=== PATIENT | male | born 1970 | race Caucasian/White ===

== ENCOUNTER 2017-07-27 10:00 | Outpatient (RCR) | payer OTHER, MEDICAID, SELFPAY | END 2017-08-02 08:52 | LOC: CAR 10:00 | PROVIDERS: PCP Family Medicine; Visit Provider Family Medicine | DX: I21.9 Acute myocardial infarction, unspecified (principal); Z86.74 Personal history of sudden cardiac arrest | CPT/HCPCS: 93798 ==

== ENCOUNTER → 2017-11-09 09:57 | Outpatient (CLI) | payer OTHER, MEDICAID, SELFPAY ==
[2017-11-09 11:28] LABS: Alanine Aminotransferase 25 IU/L (21-72); Albumin 4.4 g/dL (3.5-5.0); Albumin Globulin Ratio 1.5 (1.0-2.8); Alkaline Phosphatase 49 U/L (38-126); Aspartate Aminotransferase 25 IU/L (17-59); Bilirubin Total 0.5 mg/dL (0.2-1.3); Blood Urea Nitrogen 18 mg/dL (9-20); Calcium 9.1 mg/dL (8.4-10.2); Carbon Dioxide 30 mmol/L (22-32); Chloride 104 mmol/L (98-107); Cholesterol 133 mg/dL (140-199); Estimated Glomerular Filt Rate > 60.0 mL/min (>60); Glucose 92 mg/dL (70-100); HDL Cholesterol 51 mg/dL (40-60); HEMOLYSIS < 15 (0-50); LDL Cholesterol Calculated 59 mg/dL (<100); Potassium 4.3 mmol/L (3.4-5.1); Sodium 143 mmol/L (137-145); Total Protein 7.4 g/dL (6.3-8.2); Triglycerides 113 mg/dL (35-150)
== END ==
PROVIDERS: PCP Family Medicine; Visit Provider Family Medicine
DX: I10 Essential (primary) hypertension (principal)
CPT/HCPCS: 36415; 80053; 80061

== ENCOUNTER → 2018-03-15 11:21 | Outpatient (CLI) | payer OTHER, MEDICAID, SELFPAY ==
[2018-03-15 12:38] LABS: Alanine Aminotransferase 45 IU/L (21-72); Albumin 4.5 g/dL (3.5-5.0); Albumin Globulin Ratio 1.7 (1.0-2.8); Alkaline Phosphatase 48 U/L (38-126); Aspartate Aminotransferase 27 IU/L (17-59); BUN Creatinine Ratio 15.6 (6-22); Bilirubin Total 0.3 mg/dL (0.2-1.3); Blood Urea Nitrogen 14 mg/dL (9-20); Calcium 9.8 mg/dL (8.4-10.2); Carbon Dioxide 29 mmol/L (22-32); Chloride 105 mmol/L (98-107); Cholesterol 144 mg/dL (140-199); Estimated Glomerular Filt Rate > 60.0 mL/min (>60); Globulin 2.7 g/dL (1.7-4.1); Glucose 97 mg/dL (70-100); HDL Cholesterol 66 mg/dL (40-60); HEMOLYSIS < 15 (0-50); LDL Cholesterol Calculated 61 mg/dL (<100); Potassium 5.2 mmol/L (3.4-5.1); Sodium 147 mmol/L (137-145); Total Protein 7.2 g/dL (6.3-8.2); Triglycerides 87 mg/dL (35-150)
== END ==
PROVIDERS: PCP Family Medicine; Visit Provider Family Medicine
DX: I25.10 Atherosclerotic heart disease of native coronary artery without angina pectoris (principal); Z51.81 Encounter for therapeutic drug level monitoring
CPT/HCPCS: 36415; 80053; 80061

== ENCOUNTER 2018-03-18 10:08 | Inpatient (IN) | payer OTHER, MEDICAID, SELFPAY ==
[2018-03-18] VITALS (16 sets, daily range): BP systolic 84–119; BP diastolic 39–57; PULSE 39–95; RESP 14–19; TEMP 36.4–37.1; O2SAT 92–100; BMI 23.3; BMI 25.0
--- NOTE | 2018-03-18 10:16 | ED_ITS ---
HPI - General Adult General Chief complaint: Abdominal Pain Stated complaint: BLOODY BOWELS Time Seen by Provider: 03/18/18 10:15 Source: patient Mode of arrival: ambulatory Limitations: no limitations History of Present Illness HPI narrative: 47-year-old male. Currently taking aspirin and Plavix secondary to a cardiac stent placed earlier this year. Also finished a course of antibiotics a couple days ago after having a dental infection. No recent travel. States yesterday he had some diarrhea. Today he had a couple bowel movements that were bright red blood. Has had some abdominal cramping. No fevers. No urinary symptoms. Never had anything like this before. Related Data Home Medications Medication Instructions Recorded Confirmed aspirin 81 mg PO QDAY #0 05/22/17 03/18/18 Previous Rx's Medication Instructions Recorded nitroglycerin 0.3 mg sublingual 0.3 mg SL Q5M PRN #30 tab MDD 3 08/18/17 tablet tabs atorvastatin 40 mg tablet 40 mg PO HS #90 tab 10/18/17 clopidogrel 75 mg tablet 75 mg PO QDAY #90 tab 10/18/17 metoprolol succinate ER 100 mg 100 mg PO QDAY #90 tab 10/18/17 tablet,extended release 24 hr lisinopril 5 mg tablet 2.5 mg PO QDAY #45 tab 01/30/18 Allergies Allergy/AdvReac Type Severity Reaction Status Date / Time No Known Drug Allergies Allergy Verified 03/18/18 10:19 Review of Systems Constitutional Denies fever(s) Cardiovascular Denies chest pain and Denies dyspnea Respiratory Denies cough and Denies dyspnea Gastrointestinal Gastrointestinal: Denies abdominal pain, Denies melena, Denies change in bowel habits, Reports cramping, Denies nausea and Denies vomiting Comments: Bright red blood per rectum Genitourinary Denies dysuria Musculoskeletal Denies myalgias and Denies arthralgias Integumentary/Breasts Denies rash Neurologic Denies behavioral changes Psychiatric Denies behavioral changes Hematologic/Lymphatic Comments: On aspirin and Plavix [facility] Social History Smoking Status: Former smoker Tobacco: How many years used: 20 alcohol intake: current (A couple glasses of wine a day) substance use type: marijuana (Every now and then a marijuana edible) Exam Initial Vital Signs Initial Vital Signs: Vital Signs Temperature 97.5 F L 03/18/18 10:08 Pulse Rate 95 H 03/18/18 10:08 Respiratory Rate 18 03/18/18 10:08 Blood Pressure 91/39 L 03/18/18 10:08 Const General: cooperative, comfortable, well developed, well groomed and No acute distress Orientation: alert, awake and oriented x3 HENMT Head: normal to inspection and normocephalic Resp Effort & Inspection: normal respiratory effort Cardio Rate: regular rate GI Inspection: non-distended Palpation: soft, No firm and No tender Rectal Exam: normal sphincter tone, No fissure, heme positive stool, No hemorrhoids and tenderness Skin Lesions: no lesions Rashes: no rashes Neuro General: alert, awake and oriented x3 Extrem General: normal to inspection and capillary refill normal Psych Appearance: grossly normal and well kempt Course Orders Ordered: ED Orders 03/18/18 10:26 Complete Blood Count AUTO DIFF Stat Comprehensive Metabolic Panel Stat Lipase Stat Packed Cells Stat Partial Thromboplastin Time Stat Prothrombin Time INR Stat Type and Screen Stat 03/18/18 10:33 CT abdomen pelvis w con Stat 03/18/18 10:50 GI Panel Stat 03/18/18 11:45 Hemoglobin and Hematocrit Stat 03/18/18 13:21 Clostridium Difficile Tox PCR Stat 03/18/18 13:30 Hemoglobin and Hematocrit Stat Pantoprazole Sodium 80 mg/ (Sodium Chloride) 100 mls @ 10 mls/hr IV CONT KYA Last Admin: 03/18/18 11:07 Dose: 8 mg/hr, 10 mls/hr Sodium Chloride (Normal Saline 0.9%) 1,000 mls @ 125 mls/hr IV CONT KYA Last Admin: 03/18/18 12:05 Dose: 125 mls/hr Piperacillin/Tazobactam/Dextrose (Zosyn) 3.375 gm in 50 mls @ 100 mls/hr IV NOW ONE Stop: 03/18/18 13:45 Metronidazole (Flagyl) 500 mg in 100 mls @ 100 mls/hr IV NOW ONE Stop: 03/18/18 14:15 Discontinued Medications Sodium Chloride (Normal Saline 0.9%) 1,000 mls @ 1,000 mls/hr IV BOLUS ONE Stop: 03/18/18 11:32 Last Infusion: 03/18/18 11:58 Dose: 0 mls/hr Admin: 03/18/18 11:05 Dose: 1,000 mls/hr Ondansetron HCl (Zofran) 4 mg IV NOW ONE Stop: 03/18/18 10:46 Last Admin: 03/18/18 11:04 Dose: 4 mg Pantoprazole Sodium (Protonix) 80 mg IV NOW ONE Stop: 03/18/18 10:46 Last Admin: 03/18/18 11:05 Dose: 80 mg Vital Signs - 8 hr 03/18/18 10:08 03/18/18 10:35 03/18/18 10:40 Temperature 97.5 F L Pulse Rate 95 H 39 L 47 L Respiratory Rate 18 19 Blood Pressure 91/39 L Blood Pressure [Left Arm] 88/45 L 84/41 L Pulse Oximetry 92 100 03/18/18 10:50 03/18/18 11:03 03/18/18 11:10 Temperature Pulse Rate 51 L 56 L 57 L Respiratory Rate 18 18 18 Blood Pressure Blood Pressure [Left Arm] 84/43 L 93/48 L 100/54 L Pulse Oximetry 94 100 03/18/18 11:53 03/18/18 12:51 Temperature Pulse Rate 64 75 Respiratory Rate 18 16 Blood Pressure Blood Pressure [Left Arm] 104/57 L 94/54 L Pulse Oximetry 100 95 Medical Decision Making Lab Data Lab results reviewed: Yes I reviewed the patient's lab results. Result diagrams: 03/18/18 11:45 03/18/18 10:26 Lab Results 03/18/18 03/18/18 03/18/18 Range/Units 10:26 10:26 10:26 WBC 12.1 H (4.5-11.0) X10^3/uL RBC 4.56 (4.5-5.9) X10^6/uL Hgb 14.2 (13.5-17.5) g/dL Hct 41.4 (41-53) % MCV 90.6 (80-100) fL MCH 31.1 (26-34) PG MCHC 34.3 (30-36) % RDW 14.2 (11.6-14.8) % Plt Count 324 (150-400) X10^3/uL Neut % (Auto) 78.3 H (50-75) % Lymph % (Auto) 11.6 L (25-40) % [place] % (Auto) 9.0 (3-14) % Eos % (Auto) 0.5 L (2-4) % Baso % (Auto) 0.6 (0-2) % Neut # (Auto) 9500 H (1057-6509) /uL PT 12.0 (10.1-12.7) SECONDS INR 1.0 (0.9-1.3) APTT 17 L (26.4-36.2) SECONDS Sodium 141 (137-145) mmol/L Potassium 3.8 D (3.4-5.1) mmol/L Chloride 108 H (98-107) mmol/L Carbon Dioxide 19 L (22-32) mmol/L BUN 13 (9-20) mg/dL Creatinine 0.90 (0.66-1.25) mg/dL Estimated GFR > 60.0 (>60) mL/min BUN/Creatinine Ratio 14.4 (6-22) Glucose 164 H (70-100) mg/dL Calcium 9.3 (8.4-10.2) mg/dL Total Bilirubin 0.6 (0.2-1.3) mg/dL AST 30 (17-59) IU/L ALT 47 (21-72) IU/L Alkaline Phosphatase 58 (38-126) U/L Total Protein 7.5 (6.3-8.2) g/dL Albumin 4.5 (3.5-5.0) g/dL Globulin 3.0 (1.7-4.1) g/dL Albumin/Globulin Ratio 1.5 (1.0-2.8) Lipase (23-300) U/L Blood Type Antibody Screen Crossmatch 03/18/18 03/18/18 03/18/18 Range/Units 10:26 10:26 11:45 WBC (4.5-11.0) X10^3/uL RBC (4.5-5.9) X10^6/uL Hgb 11.3 L (13.5-17.5) g/dL Hct 32.9 L (41-53) % MCV (80-100) fL MCH (26-34) PG MCHC (30-36) % RDW (11.6-14.8) % Plt Count (150-400) X10^3/uL Neut % (Auto) (50-75) % Lymph % (Auto) (25-40) % [place] % (Auto) (3-14) % Eos % (Auto) (2-4) % Baso % (Auto) (0-2) % Neut # (Auto) (3002-8808) /uL PT (10.1-12.7) SECONDS INR (0.9-1.3) APTT (26.4-36.2) SECONDS Sodium (137-145) mmol/L Potassium (3.4-5.1) mmol/L Chloride (98-107) mmol/L Carbon Dioxide (22-32) mmol/L BUN (9-20) mg/dL Creatinine (0.66-1.25) mg/dL Estimated GFR (>60) mL/min BUN/Creatinine Ratio (6-22) Glucose (70-100) mg/dL Calcium (8.4-10.2) mg/dL Total Bilirubin (0.2-1.3) mg/dL AST (17-59) IU/L ALT (21-72) IU/L Alkaline Phosphatase (38-126) U/L Total Protein (6.3-8.2) g/dL Albumin (3.5-5.0) g/dL Globulin (1.7-4.1) g/dL Albumin/Globulin Ratio (1.0-2.8) Lipase 160 (23-300) U/L Blood Type A Negative Antibody Screen Negative Crossmatch See Detail Imaging Data CT scan - abdomen: Radiologist's impression: PROCEDURE: CT ABDOMEN PELVIS W CON INDICATIONS: Rectal bleeding TECHNIQUE: After the administration of intravenous contrast, 5 mm thick sections acquired from the diaphragm to the symphysis. 5 mm coronal and sagittal reformats were acquired. For radiation dose reduction, the following was used: automated exposure control, adjustment of mA and/or kV according to patient size. COMPARISON: [facility], CT, CT HEAD WITHOUT CONTRAST, 04/28/2017, 23 :58. FINDINGS: Image quality: Excellent. ABDOMEN: Lung bases: Lung bases are clear. Heart size is normal. Solid organs: Liver is normal in size and enhancement. Gallbladder is unremarkable. Biliary system is non dilated. Pancreas enhances normally. Spleen is normal in size and enhancement. No adrenal nodules. Kidneys demonstrate normal size and enhancement, without hydronephrosis. Peritoneum and bowel: Normal appendix best seen on axial image 65 of series 2. There is diffuse colonic wall thickening of the cecum as well as diffuse mucosal hyperemia of the cecum, transverse colon, descending colon, sigmoid colon, and rectum. There is diffuse colonic diverticulosis without convincing evidence of acute diverticulitis. No free fluid or air. Nodes and vessels: No retroperitoneal or mesenteric adenopathy by size criteria. Aorta and inferior vena cava are normal in size. Miscellaneous: No ventral hernias. PELVIS: Genitourinary: The bladder is incompletely decompressed but demonstrates mild diffuse bladder wall thickening. Miscellaneous: Small bilateral indirect inguinal fat-containing hernias. Bones: No suspicious bony lesions. No vertebral body compression fractures. Mild multilevel degenerative changes of the lumbar spine. IMPRESSION: Diffuse colonic wall thickening of the cecum and diffuse mucosal hyperemia of the cecum, transverse colon, descending colon, sigmoid colon, and rectum concerning for a diffuse colitis/proctitis. Recommend followup colonoscopy after the current clinical episode resolves to exclude an underlying mass lesion. Mild diffuse bladder wall thickening, which may be secondary to incomplete decompression. Correlation with urinalysis suggested to exclude an underlying infection. Dictated by: Yves Ruiz M.D. on 03/18/2018 at 12:05 MDM Narrative Medical decision making narrative: Patient with a benign abdominal exam. Has grossly positive blood from the rectum. No hemorrhoids or fissures seen or felt. Prior to his CT scan patient had an episode where he vomited and became bradycardic and hypotensive to a systolic blood pressure greater than 80. This did improve with positioning and a fluid bolus. He has remained with a systolic blood pressure in the high 90s to low 100s. He has never become bradycardic or tachycardic since then. Initial H&H was 14/41. Repeat 1 hr later was 11/32. This was after 1 L fluids. A repeat H&H was ordered for 2 hr later. This is still pending at the time of admission. C diff PCR and a GI panel also pending at the time of admission. CT scan concerning for a nation colitis. I discussed the case with the hospitalist to admit the patient for further evaluation and treatment. Also discussed the case with Dr. Amezquita which General surgery. Recommend starting Zosyn and Flagyl which was ordered here in the emergency department. I discussed the admission with the patient and family who are at bedside. They expressed understanding and agreement with plan. Critical Care Time Critical Care Time: Yes Total Critical Care Time: 35 Attestation: The high probability of a clinically significant, sudden or life threatening deterioration of the cardiovascular system(s) required my full and direct attention, intervention and personal management. The aggregate critical care time was 35 minutes. This time is in addition to time spent performing reported procedures but includes the following: [] Data Review and interpretation [] Patient assessment and monitoring of vital signs [] Documentation [] Medication orders and management Discharge Plan Departure Patient Disposition: Admitted As Inpatient Clinical Impression: Colitis, Hypotension, Bright red rectal bleeding Admit Date/Time: 03/18/18 13:16 Admit Provider: Elisabeth Michelle
--- NOTE | 2018-03-18 10:33 | DI.CT.S_ITS ---
PROCEDURE: CT ABDOMEN PELVIS W CON INDICATIONS: Rectal bleeding TECHNIQUE: After the administration of intravenous contrast, 5 mm thick sections acquired from the diaphragm to the symphysis. 5 mm coronal and sagittal reformats were acquired. For radiation dose reduction, the following was used: automated exposure control, adjustment of mA and/or kV according to patient size. COMPARISON: [facility], CT, CT HEAD WITHOUT CONTRAST, 04/28/2017, 23:58. FINDINGS: Image quality: Excellent. ABDOMEN: Lung bases: Lung bases are clear. Heart size is normal. Solid organs: Liver is normal in size and enhancement. Gallbladder is unremarkable. Biliary system is non dilated. Pancreas enhances normally. Spleen is normal in size and enhancement. No adrenal nodules. Kidneys demonstrate normal size and enhancement, without hydronephrosis. Peritoneum and bowel: Normal appendix best seen on axial image 65 of series 2. There is diffuse colonic wall thickening of the cecum as well as diffuse mucosal hyperemia of the cecum, transverse colon, descending colon, sigmoid colon, and rectum. There is diffuse colonic diverticulosis without convincing evidence of acute diverticulitis. No free fluid or air. Nodes and vessels: No retroperitoneal or mesenteric adenopathy by size criteria. Aorta and inferior vena cava are normal in size. Miscellaneous: No ventral hernias. PELVIS: Genitourinary: The bladder is incompletely decompressed but demonstrates mild diffuse bladder wall thickening. Miscellaneous: Small bilateral indirect inguinal fat-containing hernias. Bones: No suspicious bony lesions. No vertebral body compression fractures. Mild multilevel degenerative changes of the lumbar spine. IMPRESSION: Diffuse colonic wall thickening of the cecum and diffuse mucosal hyperemia of the cecum, transverse colon, descending colon, sigmoid colon, and rectum concerning for a diffuse colitis/proctitis. Recommend followup colonoscopy after the current clinical episode resolves to exclude an underlying mass lesion. Mild diffuse bladder wall thickening, which may be secondary to incomplete decompression. Correlation with urinalysis suggested to exclude an underlying infection. Dictated by: Yves Ruiz M.D. on 03/18/2018 at 12:05 Approved by: Yves Ruiz M.D. on 03/18/2018 at 12:14
[2018-03-18 10:42] LABS: Add Manual Diff / Slide Review NO; Basophils Percent Auto 0.6 % (0-2); Eosinophils Percent Auto 0.5 % (2-4); Hematocrit 41.4 % (41-53); Hemoglobin 14.2 g/dL (13.5-17.5); Lymphocytes Percent Auto 11.6 % (25-40); Mean Corpuscular HGB Conc 34.3 % (30-36); Mean Corpuscular Hemoglobin 31.1 PG (26-34); Mean Corpuscular Volume 90.6 fL (80-100); Neutrophils Absolute Auto 9500 /uL (1500-7000); Neutrophils Percent Auto 78.3 % (50-75); Platelet Count 324 X10^3/uL (150-400); Red Blood Cell Count 4.56 X10^6/uL (4.5-5.9); Red Cell Distribution Width 14.2 % (11.6-14.8); White Blood Cell Count 12.1 X10^3/uL (4.5-11.0)
[2018-03-18 10:46] LABS: PTT Partial Thromboplastin Tim 17 SECONDS (26.4-36.2)
--- NOTE | 2018-03-18 10:55 | PC.NURSE ---
Fluids started and pt placed in trandelenburg position. Patient awake and talking but feeling dizzy, see orders.
[2018-03-18 10:58] LABS: Chloride 108 mmol/L (98-107); Lipase 160 U/L (23-300); Potassium 3.8 mmol/L (3.4-5.1); Sodium 141 mmol/L (137-145)
[2018-03-18 10:59] LABS: Alanine Aminotransferase 47 IU/L (21-72); Albumin 4.5 g/dL (3.5-5.0); Albumin Globulin Ratio 1.5 (1.0-2.8); Alkaline Phosphatase 58 U/L (38-126); Aspartate Aminotransferase 30 IU/L (17-59); BUN Creatinine Ratio 14.4 (6-22); Bilirubin Total 0.6 mg/dL (0.2-1.3); Blood Urea Nitrogen 13 mg/dL (9-20); Calcium 9.3 mg/dL (8.4-10.2); Carbon Dioxide 19 mmol/L (22-32); Estimated Glomerular Filt Rate > 60.0 mL/min (>60); Glucose 164 mg/dL (70-100); HEMOLYSIS < 15 (0-50); Total Protein 7.5 g/dL (6.3-8.2)
[2018-03-18] MEDS: ONDANSETRON 4 MG/2 ML INJ IV (11:04)
[2018-03-18] MEDS: PANTOPRAZOLE 40 MG VIAL 80 MG IV (11:05)
[2018-03-18] MEDS: SODIUM CHLORIDE 0.9% 1,000 ML 1000 ML IV (11:05)
[2018-03-18] MEDS: PANTOPRAZOLE 80 MG in SODIUM CHLORIDE 0.9% 100 ML 10 ML IV (11:07)
[2018-03-18 11:52] LABS: Hematocrit 32.9 % (41-53); Hemoglobin 11.3 g/dL (13.5-17.5)
[2018-03-18] MEDS: SODIUM CHLORIDE 0.9% 1,000 ML 125 ML IV ×2 (12:05→20:44)
[2018-03-18 13:42] LABS: Hematocrit 34.3 % (41-53); Hemoglobin 11.8 g/dL (13.5-17.5)
[2018-03-18 13:43] LABS: Adenovirus F 40/41 Not Detected (Not Detect); Astrovirus Not Detected (Not Detect); Campylobacter Not Detected (Not Detect); Clostridium difficile toxin AB Not Detected (Not Detect); Cryptosporidium Not Detected (Not Detect); Cyclospora cayetanensis Not Detected (Not Detect); Entamoeba histolytica Not Detected (Not Detect); Enteroaggregative E.coli Not Detected (Not Detect); Enteropathogenic E.coli Detected (Not Detect); Enterotoxigenic E.coli It/st Not Detected (Not Detect); Giardia lamblia Not Detected (Not Detect); Norovirus GI/GII Not Detected (Not Detect); Plesiomonsa shigelloides Not Detected (Not Detect); Rotavirus A Not Detected (Not Detect); Salmonella Not Detected (Not Detect); Sapovirus Not Detected (Not Detect); Shiga-like toxin-prod E.coli Not Detected (Not Detect); Shigella/Enteroinvasive E.coli Not Detected (Not Detect); Vibrio Not Detected (Not Detect); Vibrio cholerae Not Detected (Not Detect); Yersinia enterocolitica Not Detected (Not Detect)
[2018-03-18] MEDS: PIPERACILLIN-TAZO 3.375 GM/50 ML FROZ.PIGGY IV (13:43)
--- NOTE | 2018-03-18 14:52 | PC.NURSE ---
Pt arrived to room 207 from ER. Scooted to bed from stretcher, after vasovagal episode in ER. No c/o nausea. No c/o pain. Resting comfortably through admission. PIV x2. Call light for needs. Urinal and Bedrest instructions provided.
--- NOTE | 2018-03-18 15:18 | P.HP_ITS ---
History of Present Illness Date Patient Seen: 03/18/18 Time Patient Seen: 15:06 Chief complaint: BLOODY BOWELS Narrative: - THIS IS A 47-YEAR-OLD MALE WITH PAST MEDICAL HISTORY SIGNIFICANT FOR RECENT [place]. PATIENT REPORTED STENT PLACEMENT X1 DONE AT ANOTHER FACILITY. - AFTER THE PROCEDURE HE WAS PLACED ON ASPIRIN AND PLAVIX WHICH SHE HAS BEEN TAKING. - HE STATED HE HAS BEEN IN HIS USUAL STATE OF HEALTH. WHEN THIS MORNING, AFTER FEW DAYS OF FEELING SOME ABDOMINAL DISCOMFORT, HISTORY HAVING SOME NAUSEA VOMITING AND DIARRHEA - HE REPORTED HE HAD FOUR BOUTS OF DIARRHEA WITH GROSS BLOODY PRODUCT NOTED ON THE STOOLS - HE DENIES ANY RECENT COLONOSCOPY. HE HAS NO FAMILY HISTORY OF COLON CANCER. - HIS HEMOGLOBIN ON ADMISSION WAS ABOVE 14. A REPEAT HEMOGLOBIN WAS 11 AT THIS TIME. HOWEVER PATIENT DID RECEIVE A LARGE AMOUNT OF IV FLUID IN THE ER - PATIENT REPORTED THAT HE DOES DRINK BEER DAILY. THREE TO 4 DAILY DRINKS REPORTED. - HE ALSO REPORTED THAT HE HAD ANOTHER BOWEL MOVEMENT HERE IN THE HOSPITAL WHICH WAS BLOODY IN NATURE WELL - IN THE ER HE ALSO HAD A PRESYNCOPAL EPISODE BUT SINCE THEN IS FEELING MUCH BETTER - HE DENIED ANY TRAVEL OUTSIDE THE COUNTRY FOR THE LAST 12 MONTHS. HE ALSO DENIES ANY EXOTIC FOOD INTAKES. HE HAS NOT BEEN CAMPING. THERE IS NO CHILDREN IN HIS HOUSE - NO REPORTED SICK CONTACTS; HAS NOT BEEN EATING ANY UNUSUAL PLACES - HE DOES NOT SMOKE TOBACCO - NO OTHER COMPLAINT REPORTED AFTER THOROUGH REVIEW OF SYSTEMS Patient History Medical History Cardiomyopathy (Acute Unknown) Coronary artery disease (Acute Unknown) Cardiac arrest (Resolved 04/2017) H/O ventricular tachycardia (Resolved 04/2017) Pneumonia (Resolved 04/2017) Surgical History S/P coronary artery stent placement (Resolved 04/2017) Status post knee surgery Family & Social History Family History: Reviewed 03/18/18 by Elisabeth Michelle DO Safety & Behavioral: Feels Safe in Current Yes Environment Been Physically Hurt or No Threatened By a Person Suicidal Ideation Description None Suicide Plan Description No Plan Tobacco & Substance use: Smoking Status Former smoker Smoking packs per day 1 alcohol intake current Substance Use Type marijuana Meds Home Medications Medication Instructions Recorded Confirmed Type aspirin 81 mg PO QDAY #0 05/22/17 03/18/18 History nitroglycerin 0.3 mg sublingual 0.3 mg SL Q5M PRN #30 tab MDD 3 08/18/17 Rx tablet tabs atorvastatin 40 mg tablet 40 mg PO HS #90 tab 10/18/17 03/18/18 Rx clopidogrel 75 mg tablet 75 mg PO QDAY #90 tab 10/18/17 03/18/18 Rx metoprolol succinate ER 100 mg 100 mg PO QDAY #90 tab 10/18/17 03/18/18 Rx tablet,extended release 24 hr lisinopril 5 mg tablet 2.5 mg PO QDAY #45 tab 01/30/18 03/18/18 Rx Allergies Allergy/AdvReac Type Severity Reaction Status Date / Time No Known Drug Allergies Allergy Verified 03/18/18 10:19 Review of Systems Review of Systems All systems reviewed & are unremarkable except as noted in HPI and below Exam Vital Signs (past 8 hours): - 03/18/18 10:08 03/18/18 10:35 03/18/18 10:40 Temperature 97.5 F L Pulse Rate 95 H 39 L 47 L Respiratory Rate 18 19 Blood Pressure 91/39 L Blood Pressure [Left Arm] 88/45 L 84/41 L Pulse Oximetry 92 100 03/18/18 10:50 03/18/18 11:03 03/18/18 11:10 Temperature Pulse Rate 51 L 56 L 57 L Respiratory Rate 18 18 18 Blood Pressure Blood Pressure [Left Arm] 84/43 L 93/48 L 100/54 L Pulse Oximetry 94 100 03/18/18 11:53 03/18/18 12:51 03/18/18 13:30 Temperature Pulse Rate 64 75 56 L Respiratory Rate 18 16 14 Blood Pressure Blood Pressure [Left Arm] 104/57 L 94/54 L 103/51 L Pulse Oximetry 100 95 99 03/18/18 13:49 03/18/18 14:30 03/18/18 14:35 Temperature 98.7 F Pulse Rate 54 L 61 58 L Respiratory Rate 18 16 14 Blood Pressure 119/57 L Blood Pressure [Left Arm] 103/51 L 109/57 L Pulse Oximetry 98 100 99 03/18/18 14:42 Temperature Pulse Rate Respiratory Rate Blood Pressure Blood Pressure [Left Arm] Pulse Oximetry 99 Oxygen Delivery Method Room Air Oxygen Flow Rate 0 Narrative Exam Narrative: NO ACUTE DISTRESS. PATIENT IS ALERT ORIENTED X3. VITAL SIGNS STABLE HEAD ATRAUMATIC NORMOCEPHALIC NECK : SUPPLE WITHOUT ADENOPATHY NO CAROTID BRUITS EYE: EOMI, PERRLA, NORMAL CONJUNCTIVA; NO JAUNDICE CHEST: REGULAR RATE. NO RUBS. PMI IS NON DISPLACED. NO MURMURS; NORMAL S1- S2 PULMONARY: DECREASED BS OVER THE BASES. MILD BIBASILAR CRACKLES NOTED; NO INCREASED DULLNESS TO PERCUSSION ABDOMEN: SOFT. MILDLY TENDER TO MODERATE PALPATION DIFFUSELY. NO GUARDING. NO REBOUND TENDERNESS. NONDISTENDED. BOWEL SOUNDS ARE PRESENT IN ALL 4 QUADRANTS. NO MASS. EXTREMITIES: NO EDEMA.. NO CYANOSIS CLUBBING NOTED. NEURO: CRANIAL NERVES 2-12 GROSSLY INTACT. NO FOCAL NEUROLOGICAL DEFICIT NOTED. MSK: NORMAL RANGE OF MOTION FOR AGE. NO JOINT EFFUSION. SKIN: NORMAL FOR ETHNICITY; NO ECCHYMOSIS. NO LESION. GOOD TURGOR.; NO RASHES : NORMAL EXTERNAL GENITALIA. PSYCH : APPROPRIATE MOOD AND AFFECT. ALERT AWAKE ORIENTED X3 Objective Labs Result Diagrams: 03/18/18 13:35 03/18/18 10:26 Labs: Laboratory Results - last 24 hr 03/18/18 03/18/18 03/18/18 10:26 10:26 10:26 WBC 12.1 H RBC 4.56 Hgb 14.2 Hct 41.4 MCV 90.6 MCH 31.1 MCHC 34.3 RDW 14.2 Plt Count 324 Neut % (Auto) 78.3 H Lymph % (Auto) 11.6 L [place] % (Auto) 9.0 Eos % (Auto) 0.5 L Baso % (Auto) 0.6 Neut # (Auto) 9500 H PT 12.0 INR 1.0 APTT 17 L Sodium 141 Potassium 3.8 D Chloride 108 H Carbon Dioxide 19 L BUN 13 Creatinine 0.90 Estimated GFR > 60.0 BUN/Creatinine Ratio 14.4 Glucose 164 H Calcium 9.3 Total Bilirubin 0.6 AST 30 ALT 47 Alkaline Phosphatase 58 Total Protein 7.5 Albumin 4.5 Globulin 3.0 Albumin/Globulin Ratio 1.5 Lipase Stl C. cayetanensis PCR Stool Rotavirus (PCR) Stool Adenovirus (PCR) Stool Astrovirus (PCR) Stool Cryptosporidium PCR Stl E.coli Shiga Tox PCR St Sh/Enteroin Ecoli PCR Stool E coli O157 PCR Stl Enterotoxigenic E PCR Stool EPEC (PCR) Stl E. histolytica PCR Stool Giardia Lamblia PCR Stool Sapovirus (PCR) Stl P. shigelloides PCR St Y.enterocolitica PCR Stool Vibrio (PCR) Stl Vibrio cholerae PCR Stl Enteroaggr Ecoli PCR Stl Norovirus GI/GII PCR Campylobacter (PCR) C. difficile Tox (PCR) Salmonella (PCR) Blood Type Antibody Screen Crossmatch 03/18/18 03/18/18 03/18/18 10:26 10:26 10:50 WBC RBC Hgb Hct MCV MCH MCHC RDW Plt Count Neut % (Auto) Lymph % (Auto) [place] % (Auto) Eos % (Auto) Baso % (Auto) Neut # (Auto) PT INR APTT Sodium Potassium Chloride Carbon Dioxide BUN Creatinine Estimated GFR BUN/Creatinine Ratio Glucose Calcium Total Bilirubin AST ALT Alkaline Phosphatase Total Protein Albumin Globulin Albumin/Globulin Ratio Lipase 160 Stl C. cayetanensis PCR Not detected Stool Rotavirus (PCR) Not detected Stool Adenovirus (PCR) Not detected Stool Astrovirus (PCR) Not detected Stool Cryptosporidium PCR Not detected Stl E.coli Shiga Tox PCR Not detected St Sh/Enteroin Ecoli PCR Not detected Stool E coli O157 PCR Not detected Stl Enterotoxigenic E PCR Not detected Stool EPEC (PCR) Detected H Stl E. histolytica PCR Not detected Stool Giardia Lamblia PCR Not detected Stool Sapovirus (PCR) Not detected Stl P. shigelloides PCR Not detected St Y.enterocolitica PCR Not detected Stool Vibrio (PCR) Not detected Stl Vibrio cholerae PCR Not detected Stl Enteroaggr Ecoli PCR Not detected Stl Norovirus GI/GII PCR Not detected Campylobacter (PCR) Not detected C. difficile Tox (PCR) Not detected Salmonella (PCR) Not detected Blood Type A Negative Antibody Screen Negative Crossmatch See Detail 03/18/18 03/18/18 11:45 13:35 WBC RBC Hgb 11.3 L 11.8 L Hct 32.9 L 34.3 L MCV MCH MCHC RDW Plt Count Neut % (Auto) Lymph % (Auto) [place] % (Auto) Eos % (Auto) Baso % (Auto) Neut # (Auto) PT INR APTT Sodium Potassium Chloride Carbon Dioxide BUN Creatinine Estimated GFR BUN/Creatinine Ratio Glucose Calcium Total Bilirubin AST ALT Alkaline Phosphatase Total Protein Albumin Globulin Albumin/Globulin Ratio Lipase Stl C. cayetanensis PCR Stool Rotavirus (PCR) Stool Adenovirus (PCR) Stool Astrovirus (PCR) Stool Cryptosporidium PCR Stl E.coli Shiga Tox PCR St Sh/Enteroin Ecoli PCR Stool E coli O157 PCR Stl Enterotoxigenic E PCR Stool EPEC (PCR) Stl E. histolytica PCR Stool Giardia Lamblia PCR Stool Sapovirus (PCR) Stl P. shigelloides PCR St Y.enterocolitica PCR Stool Vibrio (PCR) Stl Vibrio cholerae PCR Stl Enteroaggr Ecoli PCR Stl Norovirus GI/GII PCR Campylobacter (PCR) C. difficile Tox (PCR) Salmonella (PCR) Blood Type Antibody Screen Crossmatch Assessment & Plan Plan: Assessment/Plan Narrative: IMPRESSION AND PLAN HEMATOCHEZIA. COULD BE RELATED TO UNDERLYING COLITIS. RULE OUT OTHER CAUSES. FOLLOW H&H CLOSELY EVERY 6 HR; CONTINUE IV FLUID. PATIENT TO BE REFERRED TO SURGERY FOR RECOMMENDATIONS INDICATED. MONITOR CLOSELY ANEMIA OF ACUTE GI BLEED. NO INDICATION FOR TRANSFUSION AT THIS TIME. CONTINUE TO FOLLOW CLOSELY. WILL TYPE AND CROSS FOR NOW. IV FLUID. TRANSFUSE INDICATED; SERIAL H&H TO FOLLOW POSSIBLE COLITIS. LIKELY INFECTIOUS IN NATURE. STOOL PCR REVEAL ENTERIC PATHOGENIC E COLI. HOLD ALL ANTIBIOTICS FOR NOW TO DECREASE RISK OF H.U.S.. CONSERVATIVE SUPPORTIVE TREATMENT FOR NOW ONLY RECOMMENDED BY THE CDC LEUKOCYTOSIS. LIKELY SECONDARY TO INFECTIOUS COLITIS. DAILY CBC TO FOLLOW POSSIBLE ETOH ABUSE. EXTENSIVE COUNSELING GIVEN. MONITOR FOR SIGN OF ALCOHOL WITHDRAWAL. CONSIDER LIBRIUM T.I.D.. CIWA PROTOCOL TO BE STARTED INDICATED CAD PER HISTORY STATUS POST STENT PLACEMENT X1. PATIENT WILL BE CONTINUED ON HIS HOME MEDICATIONS. HOWEVER PLAVIX AND ASPIRIN WILL BE HELD FOR THE NEXT 24 HR TO EVALUATE FOR GI BLEED. IF THIS IS WITHOUT THIS WILL BE CONTINUED. HYPERGLYCEMIA. THIS COULD BE WORKED UP OUTPATIENT TO RULE OUT DIABETES VERSUS PREDIABETES THE DURATION OF THE STAY SHOULD BE BETWEEN 2 TO 3 DAYS. TIME SPENT 40 MIN
[2018-03-18] MEDS: metroNIDAZOLE 500 MG/100 ML PIGGYBACK 100 MG IV (15:39)
[2018-03-18] MEDS: FAMOTIDINE 20 MG/50 ML PIGGYBACK 200 MG IV (17:16)
[2018-03-18 18:36] LABS: Hematocrit 32.6 % (41-53)
[2018-03-18] MEDS: ATORVASTATIN 20 MG TABLET 40 MG PO (20:44)
[2018-03-18] MEDS: ACETAMINOPHEN 325 MG TABLET 650 MG PO (20:45)
[2018-03-19] VITALS (9 sets, daily range): BP systolic 100–135; BP diastolic 52–73; PULSE 56–72; RESP 16–18; TEMP 36.8–37.2; O2SAT 98–100
[2018-03-19 06:01] LABS: Add Manual Diff / Slide Review NO; Basophils Percent Auto 0.5 % (0-2); Eosinophils Percent Auto 1.2 % (2-4); Hematocrit 29.8 % (41-53); Hemoglobin 10.3 g/dL (13.5-17.5); Lymphocytes Percent Auto 20.9 % (25-40); Mean Corpuscular HGB Conc 34.6 % (30-36); Mean Corpuscular Hemoglobin 31.7 PG (26-34); Mean Corpuscular Volume 91.6 fL (80-100); Monocytes Percent Auto 9.2 % (3-14); Neutrophils Absolute Auto 5200 /uL (1500-7000); Neutrophils Percent Auto 68.2 % (50-75); Platelet Count 213 X10^3/uL (150-400); Red Blood Cell Count 3.26 X10^6/uL (4.5-5.9); Red Cell Distribution Width 13.9 % (11.6-14.8); White Blood Cell Count 7.7 X10^3/uL (4.5-11.0)
[2018-03-19 06:09] LABS: Alanine Aminotransferase 34 IU/L (21-72); Albumin 3.2 g/dL (3.5-5.0); Albumin Globulin Ratio 1.3 (1.0-2.8); Alkaline Phosphatase 40 U/L (38-126); Aspartate Aminotransferase 15 IU/L (17-59); BUN Creatinine Ratio 11.3 (6-22); Bilirubin Total 0.5 mg/dL (0.2-1.3); Blood Urea Nitrogen 9 mg/dL (9-20); Calcium 8.1 mg/dL (8.4-10.2); Carbon Dioxide 25 mmol/L (22-32); Chloride 111 mmol/L (98-107); Estimated Glomerular Filt Rate > 60.0 mL/min (>60); Globulin 2.4 g/dL (1.7-4.1); Glucose 96 mg/dL (70-100); HEMOLYSIS < 15 (0-50); Phosphorous 2.6 mg/dL (2.5-4.5); Potassium 4.3 mmol/L (3.4-5.1); Sodium 141 mmol/L (137-145); Total Protein 5.6 g/dL (6.3-8.2)
[2018-03-19] MEDS: SODIUM CHLORIDE 0.9% 1,000 ML 125 ML IV (06:09)
--- NOTE | 2018-03-19 07:34 | PC.NURSE ---
Pt is A and O x 3, VSS, CIWA = 0. One kayden bloody stool this shift at 0615. Approx medium per CLINICAL RESOURCE COORDINATOR (no hat on toilet). Pt denies pain and nausea, no dizziness noted and gait is steady. Calm and cooperative.
--- NOTE | 2018-03-19 09:03 | CM.DANOTE ---
DCP: Case received, EMR reviewed and met with patient. Introduced self and role. DCP template completed with information available. Patient is a 47 year old male who admitted yesterday afternoon to the care of the hospitalist team. PCP: Zahida Amor. Payer: confirmed: [facility]. Patient came to hospital with symptoms of blood in his stools. Patient also had presyncopal episode. Patient holds diagnosis of Colitis. Patient also has had history of cardiac issues, and has been on blood thinners. Met with patient briefly, mother in room, and is very involved. Patient lives alone, resides in [place], and is independent. P: DCP to continue to follow while stay here in hospital. Goal is for home when medically stable. Melisa Stauffer RN/Electrical Tech/Project Manager
[2018-03-19] MEDS: METOPROLOL ER 50 MG TABLET 100 MG PO (09:14)
[2018-03-19] MEDS: CLOPIDOGREL 75 MG TABLET PO (09:14)
[2018-03-19] MEDS: ASPIRIN EC 81 MG TABLET PO (09:14)
--- NOTE | 2018-03-19 09:48 | P.PN_ITS ---
Subjective Date Patient Seen: 03/19/18 Time Patient Seen: 09:42 Interval history: REPORTED TRACE OF BLOOD IN STOOL OVERNIGHT NO NAUSEA OR VOMITING SPOKE TO PT WITH FAMILY AT BEDSIDE EXPRESSED DEDIRE TO RESTART HOME CARDIAC MEDS QUESTIONS AND CONCERNS ADDRESSED Exam Vital Signs (past 8 hours): - 03/19/18 06:05 03/19/18 09:05 03/19/18 09:14 Temperature 98.3 F Pulse Rate 69 61 61 Respiratory Rate 16 Blood Pressure 100/60 110/69 110/69 Pulse Oximetry 100 99 03/19/18 09:31 Temperature 98.7 F Pulse Rate 67 Respiratory Rate 18 Blood Pressure 108/52 L Pulse Oximetry 99 Oxygen Delivery Method Room Air Oxygen Flow Rate 0 Narrative Exam Narrative: NO ACUTE DISTRESS. PATIENT IS ALERT ORIENTED X3. VITAL SIGNS STABLE HEAD ATRAUMATIC NORMOCEPHALIC NECK : SUPPLE WITHOUT ADENOPATHY NO CAROTID BRUITS EYE: EOMI, PERRLA, NORMAL CONJUNCTIVA; NO JAUNDICE CHEST: REGULAR RATE. NO RUBS. PMI IS NON DISPLACED. NO MURMURS; NORMAL S1- S2 PULMONARY: DECREASED BS OVER THE BASES. MILD BIBASILAR CRACKLES NOTED; NO INCREASED DULLNESS TO PERCUSSION ABDOMEN: SOFT. MILDLY TENDER TO MODERATE PALPATION DIFFUSELY. NO GUARDING. NO REBOUND TENDERNESS. NONDISTENDED. BOWEL SOUNDS ARE PRESENT IN ALL 4 QUADRANTS. NO MASS. EXTREMITIES: NO EDEMA.. NO CYANOSIS CLUBBING NOTED. NEURO: CRANIAL NERVES 2-12 GROSSLY INTACT. NO FOCAL NEUROLOGICAL DEFICIT NOTED. MSK: NORMAL RANGE OF MOTION FOR AGE. NO JOINT EFFUSION. SKIN: NORMAL FOR ETHNICITY; NO ECCHYMOSIS. NO LESION. GOOD TURGOR.; NO RASHES : NORMAL EXTERNAL GENITALIA. PSYCH : APPROPRIATE MOOD AND AFFECT. ALERT AWAKE ORIENTED X3 Objective Labs Result Diagrams: 03/19/18 05:48 03/19/18 05:48 Labs: Laboratory Results - last 24 hr 03/18/18 03/18/18 03/18/18 10:26 10:26 10:26 WBC 12.1 H RBC 4.56 Hgb 14.2 Hct 41.4 MCV 90.6 MCH 31.1 MCHC 34.3 RDW 14.2 Plt Count 324 Neut % (Auto) 78.3 H Lymph % (Auto) 11.6 L [place] % (Auto) 9.0 Eos % (Auto) 0.5 L Baso % (Auto) 0.6 Neut # (Auto) 9500 H PT 12.0 INR 1.0 APTT 17 L Sodium 141 Potassium 3.8 D Chloride 108 H Carbon Dioxide 19 L BUN 13 Creatinine 0.90 Estimated GFR > 60.0 BUN/Creatinine Ratio 14.4 Glucose 164 H Calcium 9.3 Phosphorus Magnesium Total Bilirubin 0.6 AST 30 ALT 47 Alkaline Phosphatase 58 Total Protein 7.5 Albumin 4.5 Globulin 3.0 Albumin/Globulin Ratio 1.5 Lipase Stl C. cayetanensis PCR Stool Rotavirus (PCR) Stool Adenovirus (PCR) Stool Astrovirus (PCR) Stool Cryptosporidium PCR Stl E.coli Shiga Tox PCR St Sh/Enteroin Ecoli PCR Stool E coli O157 PCR Stl Enterotoxigenic E PCR Stool EPEC (PCR) Stl E. histolytica PCR Stool Giardia Lamblia PCR Stool Sapovirus (PCR) Stl P. shigelloides PCR St Y.enterocolitica PCR Stool Vibrio (PCR) Stl Vibrio cholerae PCR Stl Enteroaggr Ecoli PCR Stl Norovirus GI/GII PCR Campylobacter (PCR) C. difficile Tox (PCR) Salmonella (PCR) Blood Type Antibody Screen Crossmatch 03/18/18 03/18/18 03/18/18 10:26 10:26 10:50 WBC RBC Hgb Hct MCV MCH MCHC RDW Plt Count Neut % (Auto) Lymph % (Auto) [place] % (Auto) Eos % (Auto) Baso % (Auto) Neut # (Auto) PT INR APTT Sodium Potassium Chloride Carbon Dioxide BUN Creatinine Estimated GFR BUN/Creatinine Ratio Glucose Calcium Phosphorus Magnesium Total Bilirubin AST ALT Alkaline Phosphatase Total Protein Albumin Globulin Albumin/Globulin Ratio Lipase 160 Stl C. cayetanensis PCR Not detected Stool Rotavirus (PCR) Not detected Stool Adenovirus (PCR) Not detected Stool Astrovirus (PCR) Not detected Stool Cryptosporidium PCR Not detected Stl E.coli Shiga Tox PCR Not detected St Sh/Enteroin Ecoli PCR Not detected Stool E coli O157 PCR Not detected Stl Enterotoxigenic E PCR Not detected Stool EPEC (PCR) Detected H Stl E. histolytica PCR Not detected Stool Giardia Lamblia PCR Not detected Stool Sapovirus (PCR) Not detected Stl P. shigelloides PCR Not detected St Y.enterocolitica PCR Not detected Stool Vibrio (PCR) Not detected Stl Vibrio cholerae PCR Not detected Stl Enteroaggr Ecoli PCR Not detected Stl Norovirus GI/GII PCR Not detected Campylobacter (PCR) Not detected C. difficile Tox (PCR) Not detected Salmonella (PCR) Not detected Blood Type A Negative Antibody Screen Negative Crossmatch See Detail 03/18/18 03/18/18 03/18/18 11:45 13:35 18:25 WBC RBC Hgb 11.3 L 11.8 L 11.0 L Hct 32.9 L 34.3 L 32.6 L MCV MCH MCHC RDW Plt Count Neut % (Auto) Lymph % (Auto) [place] % (Auto) Eos % (Auto) Baso % (Auto) Neut # (Auto) PT INR APTT Sodium Potassium Chloride Carbon Dioxide BUN Creatinine Estimated GFR BUN/Creatinine Ratio Glucose Calcium Phosphorus Magnesium Total Bilirubin AST ALT Alkaline Phosphatase Total Protein Albumin Globulin Albumin/Globulin Ratio Lipase Stl C. cayetanensis PCR Stool Rotavirus (PCR) Stool Adenovirus (PCR) Stool Astrovirus (PCR) Stool Cryptosporidium PCR Stl E.coli Shiga Tox PCR St Sh/Enteroin Ecoli PCR Stool E coli O157 PCR Stl Enterotoxigenic E PCR Stool EPEC (PCR) Stl E. histolytica PCR Stool Giardia Lamblia PCR Stool Sapovirus (PCR) Stl P. shigelloides PCR St Y.enterocolitica PCR Stool Vibrio (PCR) Stl Vibrio cholerae PCR Stl Enteroaggr Ecoli PCR Stl Norovirus GI/GII PCR Campylobacter (PCR) C. difficile Tox (PCR) Salmonella (PCR) Blood Type Antibody Screen Crossmatch 03/19/18 03/19/18 05:48 05:48 WBC 7.7 RBC 3.26 L Hgb 10.3 L Hct 29.8 L MCV 91.6 MCH 31.7 MCHC 34.6 RDW 13.9 Plt Count 213 Neut % (Auto) 68.2 Lymph % (Auto) 20.9 L [place] % (Auto) 9.2 Eos % (Auto) 1.2 L Baso % (Auto) 0.5 Neut # (Auto) 5200 PT INR APTT Sodium 141 Potassium 4.3 Chloride 111 H Carbon Dioxide 25 BUN 9 Creatinine 0.80 Estimated GFR > 60.0 BUN/Creatinine Ratio 11.3 Glucose 96 Calcium 8.1 L Phosphorus 2.6 Magnesium 2.0 Total Bilirubin 0.5 AST 15 L ALT 34 Alkaline Phosphatase 40 Total Protein 5.6 L Albumin 3.2 L Globulin 2.4 Albumin/Globulin Ratio 1.3 Lipase Stl C. cayetanensis PCR Stool Rotavirus (PCR) Stool Adenovirus (PCR) Stool Astrovirus (PCR) Stool Cryptosporidium PCR Stl E.coli Shiga Tox PCR St Sh/Enteroin Ecoli PCR Stool E coli O157 PCR Stl Enterotoxigenic E PCR Stool EPEC (PCR) Stl E. histolytica PCR Stool Giardia Lamblia PCR Stool Sapovirus (PCR) Stl P. shigelloides PCR St Y.enterocolitica PCR Stool Vibrio (PCR) Stl Vibrio cholerae PCR Stl Enteroaggr Ecoli PCR Stl Norovirus GI/GII PCR Campylobacter (PCR) C. difficile Tox (PCR) Salmonella (PCR) Blood Type Antibody Screen Crossmatch Assessment & Plan Plan: Assessment/Plan Narrative: IMPRESSION AND PLAN HEMATOCHEZIA. COULD BE RELATED TO UNDERLYING COLITIS. CONT FOLLOW H& H CLOSELY EVERY 6 HR; DO NOT SUSPECT OTHER ETIOLOGY; CONTINUE IV FLUID. CONT TO MONITOR CLOSELY ANEMIA OF ACUTE GI BLEED. NO INDICATION FOR TRANSFUSION AT THIS TIME. CONTINUE TO FOLLOW CLOSELY. WILL TYPE AND CROSS FOR NOW. IV FLUID. TRANSFUSE INDICATED; SERIAL H&H TO FOLLOW POSSIBLE COLITIS. LIKELY INFECTIOUS IN NATURE. MATTI TO ENTEROPATHOGENIC E COLI. HOLD ALL ANTIBIOTICS FOR NOW TO DECREASE RISK OF H.U.S.. CONSERVATIVE SUPPORTIVE TREATMENT FOR NOW ONLY RECOMMENDED BY THE CDC; RESTARTED ON ORAL INTAKES WITH CLEARS LIQ DIET AND ADVANCE ANDERS LEUKOCYTOSIS. LIKELY SECONDARY TO INFECTIOUS COLITIS. DAILY CBC TO FOLLOW POSSIBLE ETOH ABUSE. EXTENSIVE COUNSELING GIVEN. MONITOR FOR SIGN OF ALCOHOL WITHDRAWAL. CONSIDER LIBRIUM T.I.D.. CIWA PROTOCOL TO BE STARTED INDICATED CAD PER HISTORY STATUS POST STENT PLACEMENT X1. PATIENT HAD A DRUG ELUDING STENT; DUE TO RESOLUTION OF BLEEDING THE LAST 12 HRS, WILL RESTART ON PLAVIX AND ASPIRIN; MONITOR CLOSELY AND ADJUST MANAGEMENT INDICATED CLINICALLY; HYPERGLYCEMIA. THIS COULD BE WORKED UP OUTPATIENT TO RULE OUT DIABETES VERSUS PREDIABETES ADVANCE DIET ANDERS DC IN NEXT 24-48 HRS CONT TO HOLD ABX GET U/A THIS AM COLONOSCOPY OUTPATIENT
[2018-03-19 11:18] LABS: Bacteria Urine None Seen; RBC Urine None Seen (0-5/HPF); WBC Urine None Seen (0-5/HPF)
[2018-03-19 11:29] LABS: Appearance Urine UA CLEAR; Bilirubin Urine UA NEGATIVE (NEGATIVE); Color Urine UA YELLOW; Glucose Urine UA NEGATIVE (Negative); Ketones Urine UA NEGATIVE (NEGATIVE); Leukocyte Esterase Urine UA NEGATIVE (NEGATIVE); Nitrite Urine UA NEGATIVE (Negative); Occult Blood Urine UA NEGATIVE (Negative); Protein Urine UA NEGATIVE (Negative); Specific Gravity Urine UA 1.015 (1.000-1.035); Urobilinogen Urine UA 0.2 E.U./dL (0.2)
[2018-03-19 11:40] LABS: Culture Indicated Urine Cult Not Indicated; Urine Comments Microscopic Normal
[2018-03-19 17:21] LABS: Hematocrit 29.5 % (41-53); Hemoglobin 10.2 g/dL (13.5-17.5)
[2018-03-19] MEDS: FAMOTIDINE 20 MG/50 ML PIGGYBACK 200 MG IV (18:03)
[2018-03-19] MEDS: ATORVASTATIN 20 MG TABLET 40 MG PO (20:19)
[2018-03-19 21:07] LABS: Hematocrit 30.3 % (41-53); Hemoglobin 10.4 g/dL (13.5-17.5)
[2018-03-20] VITALS: BP 111/72; PULSE 61; RESP 20; TEMP 36.9; O2SAT 100
[2018-03-20 03:05] LABS: Add Manual Diff / Slide Review NO; Basophils Percent Auto 0.6 % (0-2); Eosinophils Percent Auto 1.2 % (2-4); Hematocrit 30.3 % (41-53); Hemoglobin 10.5 g/dL (13.5-17.5); Mean Corpuscular HGB Conc 34.7 % (30-36); Mean Corpuscular Hemoglobin 31.6 PG (26-34); Neutrophils Absolute Auto 5000 /uL (1500-7000); Neutrophils Percent Auto 65.2 % (50-75); Platelet Count 228 X10^3/uL (150-400); Red Blood Cell Count 3.33 X10^6/uL (4.5-5.9); Red Cell Distribution Width 13.6 % (11.6-14.8); White Blood Cell Count 7.7 X10^3/uL (4.5-11.0)
[2018-03-20 03:12] LABS: Alanine Aminotransferase 39 IU/L (21-72); Albumin 3.7 g/dL (3.5-5.0); Albumin Globulin Ratio 1.5 (1.0-2.8); Alkaline Phosphatase 41 U/L (38-126); Aspartate Aminotransferase 19 IU/L (17-59); BUN Creatinine Ratio 8.8 (6-22); Bilirubin Total 0.3 mg/dL (0.2-1.3); Blood Urea Nitrogen 7 mg/dL (9-20); Calcium 8.6 mg/dL (8.4-10.2); Carbon Dioxide 25 mmol/L (22-32); Chloride 108 mmol/L (98-107); Estimated Glomerular Filt Rate > 60.0 mL/min (>60); Globulin 2.5 g/dL (1.7-4.1); Glucose 94 mg/dL (70-100); HEMOLYSIS < 15 (0-50); Potassium 3.6 mmol/L (3.4-5.1); Sodium 141 mmol/L (137-145); Total Protein 6.2 g/dL (6.3-8.2)
[2018-03-20 06:21] VITALS: BP 118/63; PULSE 68; RESP 20; TEMP 36.8; O2SAT 100
[2018-03-20 07:00] VITALS: BP 113/64; PULSE 65; RESP 16; TEMP 37; O2SAT 99
[2018-03-20 08:44] VITALS: BP 120/70; PULSE 65; O2SAT 97
[2018-03-20 08:46] LABS: Hematocrit 30.3 % (41-53); Hemoglobin 10.6 g/dL (13.5-17.5)
[2018-03-20] MEDS: SODIUM CHLORIDE 0.9% 1,000 ML 100 ML IV (10:09)
[2018-03-20 10:11] VITALS: PULSE 58
--- NOTE | 2018-03-20 10:12 | PC.NURSE ---
Addendum entered by Keturah De La Rosa R.N. 03/20/18 12:31: Pt showered. Tolerated general diet for lunch, no nausea or pain. Original Note: Pt alert oriented up to bathroom, denies dizziness, and pain. Reports feeling bloated. BT+ abdomen firm. Had 75cc black liquid stool, MD aware. Md also aware of patients VSS, HR 58-60, order to hold this mornings BP meds. IVF restarted.
[2018-03-20 11:30] VITALS: BP 122/82; PULSE 66; RESP 16; TEMP 36.6; O2SAT 100
--- NOTE | 2018-03-20 13:55 | PM.DS.1 ---
History of Present Illness Chief complaint: BLOODY BOWELS Narrative: - THIS IS A 47-YEAR-OLD MALE WITH PAST MEDICAL HISTORY SIGNIFICANT FOR RECENT PA. PATIENT REPORTED STENT PLACEMENT X1 DONE AT ANOTHER FACILITY. - AFTER THE PROCEDURE HE WAS PLACED ON ASPIRIN AND PLAVIX WHICH SHE HAS BEEN TAKING. - HE STATED HE HAS BEEN IN HIS USUAL STATE OF HEALTH. WHEN THIS MORNING, AFTER FEW DAYS OF FEELING SOME ABDOMINAL DISCOMFORT, HISTORY HAVING SOME NAUSEA VOMITING AND DIARRHEA - HE REPORTED HE HAD FOUR BOUTS OF DIARRHEA WITH GROSS BLOODY PRODUCT NOTED ON THE STOOLS - HE DENIES ANY RECENT COLONOSCOPY. HE HAS NO FAMILY HISTORY OF COLON CANCER. - HIS HEMOGLOBIN ON ADMISSION WAS ABOVE 14. A REPEAT HEMOGLOBIN WAS 11 AT THIS TIME. HOWEVER PATIENT DID RECEIVE A LARGE AMOUNT OF IV FLUID IN THE ER - PATIENT REPORTED THAT HE DOES DRINK BEER DAILY. THREE TO 4 DAILY DRINKS REPORTED. - HE ALSO REPORTED THAT HE HAD ANOTHER BOWEL MOVEMENT HERE IN THE HOSPITAL WHICH WAS BLOODY IN NATURE WELL - IN THE ER HE ALSO HAD A PRESYNCOPAL EPISODE BUT SINCE THEN IS FEELING MUCH BETTER - HE DENIED ANY TRAVEL OUTSIDE THE [place] FOR THE LAST 12 MONTHS. HE ALSO DENIES ANY EXOTIC FOOD INTAKES. HE HAS NOT BEEN CAMPING. THERE IS NO CHILDREN IN HIS HOUSE - NO REPORTED SICK CONTACTS; HAS NOT BEEN EATING ANY UNUSUAL PLACES - HE DOES NOT SMOKE TOBACCO - NO OTHER COMPLAINT REPORTED AFTER THOROUGH REVIEW OF SYSTEMS Discharge Providers Date of admission: 03/18/18 13:16 Primary care physician: Zahida Amor DO Discharge provider: Elisabeth Michelle DO Discharge Date: 03/20/18 Summary Discharge Diagnosis: ACUTE LOWER GI BLEED TO INFECTIOUS PROCESS; STABLE; NO SURGERY REQ; GI TO SEE OUTPATIENT FOR COLONOSCOPY INDICATED ENTEROPATHOGENIC E COLI COLITIS/INFECTION; SUPPORTIVE TREAMENT ONLY AT THIS TIME LEUKOCYTOSIS ; RESOLVED; ANEMIA; WITH COMPONENT OF ACUTE BLOOD LOSS DUE TO ACUTE INFECTION; STABLE HH; MONITOR ONLY FOR NOW CAD PER HX; DC ON HOME MEDS ETOH ABUSE PER HX; COUNSELING GIVEN NICOTINE ADDICTION; COUNSELING GIVEN Hospital Course: PATIENT ADMITTED TO THE HOSPITAL WITH ABDOMINAL PAIN WELL BLOOD IN HIS STOOL AND BLACK TARRY STOOL. FURTHER WORKUP INDICATED PATIENT HAD SIGNIFICANT COLITIS IMPROVING BY CT SCAN EXAMINATION. HIS STOOL GREW ENTEROPATHOGENIC E COLI. THIS WAS THE CAUSE OF HIS COLITIS. ALSO THE CAUSE OF HIS BLOOD PER RECTUM. ANY CASE A COLONOSCOPY IS INDICATED AT THIS POINT DUE TO CURRENT THAN GOING ON AND INFECTIOUS PROCESS. HIS HEMOGLOBIN HAD BEEN TREATED FOR LAST FEW DAYS HAS BEEN REMAINING STABLE. THERE IS NO NEED FOR ANY TRANSFUSION PER CBC RECOMMENDATION, THE E COLI INFECTION NEED TO BE TREATED CONSERVATIVELY. ANTIBIOTICS TREATMENT IS NOT RECOMMENDED. PATIENT IN TO STAY WELL-HYDRATED. HE NEEDS TO EXPECT TO HAVE SOME BLACK STOOL AND BLOOD IN HIS STOOL AT TIMES FOR THE NEXT 2-3 WEEKS. AT THIS POINT HIS LEUKOCYTOSIS HAS RESOLVED. AGAIN THERE IS NO NEED FOR ANY ANTIBIOTICS. HE WOULD LIKE TO GO HOME AND WE AGREED. HE WILL BE DISCHARGED BACK ON HIS HOME MEDICATIONS. ADDITIONAL MEASURES WILL BE DEFERRED TO HIS OUTPATIENT PROVIDERS Status at Discharge Cognitive/behavioral status at discharge: STABLE TO HOME Functional status at discharge: independent ambulation Overall status at discharge: patient is back to baseline Time Spent with Patient Greater than 30 minutes Exam Vital Signs (past 8 hours): - 03/20/18 06:21 03/20/18 07:00 03/20/18 08:44 Temperature 98.3 F 98.6 F Pulse Rate 68 65 65 Respiratory Rate 20 16 Blood Pressure 118/63 113/64 120/70 Pulse Oximetry 100 99 97 03/20/18 10:11 03/20/18 11:30 Temperature 97.9 F Pulse Rate 58 L 66 Respiratory Rate 16 Blood Pressure 122/82 Pulse Oximetry 100 Oxygen Delivery Method Room Air Oxygen Flow Rate 0 Narrative Exam Narrative: NO ACUTE DISTRESS. PATIENT IS ALERT ORIENTED X3. VITAL SIGNS STABLE HEAD ATRAUMATIC NORMOCEPHALIC NECK : SUPPLE WITHOUT ADENOPATHY NO CAROTID BRUITS EYE: EOMI, PERRLA, NORMAL CONJUNCTIVA; NO JAUNDICE CHEST: REGULAR RATE. NO RUBS. PMI IS NON DISPLACED. NO MURMURS; NORMAL S1-S2 PULMONARY: DECREASED BS OVER THE BASES. MILD BIBASILAR CRACKLES NOTED; NO INCREASED DULLNESS TO PERCUSSION ABDOMEN: SOFT. MILDLY TENDER TO MODERATE PALPATION DIFFUSELY. NO GUARDING. NO REBOUND TENDERNESS. NONDISTENDED. BOWEL SOUNDS ARE PRESENT IN ALL 4 QUADRANTS. NO MASS. EXTREMITIES: NO EDEMA.. NO CYANOSIS CLUBBING NOTED. NEURO: CRANIAL NERVES 2-12 GROSSLY INTACT. NO FOCAL NEUROLOGICAL DEFICIT NOTED. MSK: NORMAL RANGE OF MOTION FOR AGE. NO JOINT EFFUSION. SKIN: NORMAL FOR ETHNICITY; NO ECCHYMOSIS. NO LESION. GOOD TURGOR.; NO RASHES : NORMAL EXTERNAL GENITALIA. PSYCH : APPROPRIATE MOOD AND AFFECT. ALERT AWAKE ORIENTED X3 Objective Labs Result Diagrams: 03/20/18 08:26 03/20/18 02:55 Labs: Laboratory Results - last 24 hr 03/19/18 03/19/18 03/20/18 17:15 21:02 02:55 WBC 7.7 RBC 3.33 L Hgb 10.2 L 10.4 L 10.5 L Hct 29.5 L 30.3 L 30.3 L MCV 91.0 MCH 31.6 MCHC 34.7 RDW 13.6 Plt Count 228 Neut % (Auto) 65.2 Lymph % (Auto) 24.0 L [place] % (Auto) 9.0 Eos % (Auto) 1.2 L Baso % (Auto) 0.6 Neut # (Auto) 5000 Sodium Potassium Chloride Carbon Dioxide BUN Creatinine Estimated GFR BUN/Creatinine Ratio Glucose Calcium Total Bilirubin AST ALT Alkaline Phosphatase Total Protein Albumin Globulin Albumin/Globulin Ratio 03/20/18 03/20/18 02:55 08:26 WBC RBC Hgb 10.6 L Hct 30.3 L MCV MCH MCHC RDW Plt Count Neut % (Auto) Lymph % (Auto) [place] % (Auto) Eos % (Auto) Baso % (Auto) Neut # (Auto) Sodium 141 Potassium 3.6 Chloride 108 H Carbon Dioxide 25 BUN 7 L Creatinine 0.80 Estimated GFR > 60.0 BUN/Creatinine Ratio 8.8 Glucose 94 Calcium 8.6 Total Bilirubin 0.3 AST 19 ALT 39 Alkaline Phosphatase 41 Total Protein 6.2 L Albumin 3.7 Globulin 2.5 Albumin/Globulin Ratio 1.5 Discharge Plan Discharge Plan Patient Disposition: Home Discharge comment: DC HOME ACT ANDERS STAY ON SOFT DIET FOR NOW EXPECT SOME FLOOD PER RECTUM DUE TO THE CURRENT E COLI INFECTION F/U WITH PCP/GI IN 3-10 DAYS STAY WELL HYDRATED AVOID ETOH/TOBACCO PRODUCTS Discharge Med Rec/Prescriptions Prescriptions: Continue nitroglycerin 0.3 mg tablet, sublingual 0.3 mg SL Q5M MDD 3 tabs PRN (Reason: chest pain) Qty: 30 RF: 0 atorvastatin 40 mg tablet 40 mg PO HS Qty: 90 RF: 0 clopidogrel [Plavix] 75 mg tablet 75 mg PO QDAY Qty: 90 RF: 0 metoprolol succinate 100 mg tablet extended release 24 hr 100 mg PO QDAY Qty: 90 RF: 0 lisinopril 5 mg tablet 2.5 mg PO QDAY Qty: 45 RF: 2 aspirin 81 mg tablet,chewable 1 tab PO DAILY RF: 0 Provider Discharge Instructions Diet: Diet as Tolerated Skin/Wound/Dressing Care Report to your healthcare provider any signs of infection, such as:: chills, fever, night sweats, increased pain, unusual drainage and unusual redness Discharge Data Primary Care Provider: Zahida Amor Attending Provider: Elisabeth Michelle Admit Date/Time: 03/18/18 13:16
--- NOTE | 2018-03-20 14:26 | CM.DPC ---
DCP Cont: Met briefly with patient's mom, who was visiting. She stated she is hopeful that he will be discharging today, she was going to meet up with hospitalist. Patient is also eager to go home as well, has significant other that is also supportive and involved. P: Just noted discharge orders. Patient is to be going home today. Melisa Stauffer RN/Waste Salvager
== END 2018-03-20 14:47 | disposition home or self-care (01) | DRG 248 ==
LOC: ED 12:22 → AC 13:17
PROVIDERS: Admitting Provider Hospitalist; Emergency Provider Emergency Medicine; PCP Family Medicine; Visit Provider Hospitalist
DX: A04.8 Other specified bacterial intestinal infections (principal); D62 Acute posthemorrhagic anemia; I42.9 Cardiomyopathy, unspecified; F10.10 Alcohol abuse, uncomplicated; R73.9 Hyperglycemia, unspecified; F17.200 Nicotine dependence, unspecified, uncomplicated
CPT/HCPCS: 36415; 74177; 80053; 81001; 83690; 83735; 84100; 85014; 85018; 85025; 85610; 85730; 86850; 86900; 86901; 87507; 96361; 96374; 96375; 99285; 99291; 99292; C9113; J2405; J2543; Q9967

== ENCOUNTER → 2018-03-30 14:02 | Outpatient (CLI) | payer OTHER, MEDICAID, SELFPAY ==
[2018-03-18 15:03] VITALS: BMI 25.0
[2018-03-30 14:21] LABS: Add Manual Diff / Slide Review NO; Basophils Percent Auto 0.9 % (0-2); Hematocrit 31.5 % (41-53); Hemoglobin 10.7 g/dL (13.5-17.5); Lymphocytes Percent Auto 27.1 % (25-40); Mean Corpuscular HGB Conc 34.1 % (30-36); Mean Corpuscular Volume 93.9 fL (80-100); Neutrophils Absolute Auto 3500 /uL (1500-7000); Platelet Count 286 X10^3/uL (150-400); Red Blood Cell Count 3.35 X10^6/uL (4.5-5.9); Red Cell Distribution Width 14.5 % (11.6-14.8); White Blood Cell Count 6.2 X10^3/uL (4.5-11.0)
[2018-03-30 14:31] LABS: Blood Urea Nitrogen 13 mg/dL (9-20); Calcium 9.2 mg/dL (8.4-10.2); Carbon Dioxide 27 mmol/L (22-32); Chloride 108 mmol/L (98-107); Estimated Glomerular Filt Rate > 60.0 mL/min (>60); Glucose 87 mg/dL (70-100); HEMOLYSIS < 15 (0-50); Potassium 4.1 mmol/L (3.4-5.1); Sodium 143 mmol/L (137-145)
== END ==
PROVIDERS: PCP Family Medicine; Visit Provider Internal Medicine Cardiovascular Disease
DX: K92.2 Gastrointestinal hemorrhage, unspecified (principal)
CPT/HCPCS: 36415; 80048; 85025

== ENCOUNTER → 2018-08-29 10:05 | Outpatient (CLI) | payer OTHER, MEDICAID, SELFPAY ==
[2018-03-18 15:03] VITALS: BMI 25.0
[2018-08-29 11:01] LABS: Appearance Urine UA CLEAR; Bilirubin Urine UA NEGATIVE (NEGATIVE); Color Urine UA YELLOW; Glucose Urine UA NEGATIVE (Negative); Ketones Urine UA NEGATIVE (NEGATIVE); Leukocyte Esterase Urine UA NEGATIVE (NEGATIVE); Nitrite Urine UA NEGATIVE (Negative); Occult Blood Urine UA NEGATIVE (Negative); Protein Urine UA NEGATIVE (Negative); Specific Gravity Urine UA 1.025 (1.000-1.035); Urobilinogen Urine UA 0.2 E.U./dL (0.2); pH Urine UA 5.5 (4.5-8.0)
[2018-08-29 11:07] LABS: Add Manual Diff / Slide Review NO; Basophils Absolute Auto 0 /uL (0-100); Basophils Percent Auto 0.7 % (0-2); Eosinophils Absolute Auto 100 /uL (0-450); Eosinophils Percent Auto 1.8 % (2-4); Hematocrit 41.6 % (41-53); Hemoglobin 14.4 g/dL (13.5-17.5); Lymphocytes Absolute Auto 1400 /uL (1100-4500); Lymphocytes Percent Auto 20.8 % (25-40); Mean Corpuscular HGB Conc 34.6 % (30-36); Mean Corpuscular Hemoglobin 31.7 PG (26-34); Mean Corpuscular Volume 91.5 fL (80-100); Monocytes Absolute Auto 800 /uL (0-900); Monocytes Percent Auto 11.1 % (3-14); Neutrophils Absolute Auto 4500 /uL (1500-7000); Neutrophils Percent Auto 65.6 % (50-75); Platelet Count 272 X10^3/uL (150-400); Red Blood Cell Count 4.54 X10^6/uL (4.5-5.9); Red Cell Distribution Width 14.7 % (11.6-14.8); White Blood Cell Count 6.9 X10^3/uL (4.5-11.0)
[2018-08-29 11:21] LABS: Alanine Aminotransferase 50 IU/L (21-72); Albumin 4.7 g/dL (3.5-5.0); Albumin Globulin Ratio 1.5 (1.0-2.8); Alkaline Phosphatase 45 U/L (38-126); Aspartate Aminotransferase 40 IU/L (17-59); Bilirubin Total 0.7 mg/dL (0.2-1.3); Blood Urea Nitrogen 17 mg/dL (9-20); Calcium 9.9 mg/dL (8.4-10.2); Carbon Dioxide 30 mmol/L (22-32); Chloride 101 mmol/L (98-107); Cholesterol 146 mg/dL (140-199); Estimated Glomerular Filt Rate > 60.0 mL/min (>60); Globulin 3.1 g/dL (1.7-4.1); Glucose 109 mg/dL (70-100); HDL Cholesterol 74 mg/dL (40-60); HEMOLYSIS < 15 (0-50); LDL Cholesterol Calculated 52 mg/dL (<100); Potassium 4.5 mmol/L (3.4-5.1); Sodium 139 mmol/L (137-145); Total Protein 7.8 g/dL (6.3-8.2); Triglycerides 99 mg/dL (35-150)
[2018-08-29 11:24] LABS: Bacteria Urine Occasional (0-1); Culture Indicated Urine Cult Not Indicated; Mucus Urine 1+ (Negative); RBC Urine 0-1/HPF (0-5/HPF); WBC Urine 0-1/HPF (0-5/HPF)
[2018-08-29 11:52] LABS: Prostate Specific Antigen Scrn 0.618 ng/mL (0.1-4.0)
[2018-08-29 12:05] LABS: Thyroid Stimulating Hormone 1.51 uIU/mL (0.47-4.68)
== END ==
PROVIDERS: PCP Family Medicine; Visit Provider Family Medicine
DX: Z79.899 Other long term (current) drug therapy (principal); I95.9 Hypotension, unspecified; K52.9 Noninfective gastroenteritis and colitis, unspecified
CPT/HCPCS: 36415; 80053; 80061; 81001; 84443; 85025; G0103

== ENCOUNTER 2018-11-10 13:14 | Emergency (ER) | payer OTHER, MEDICAID, SELFPAY ==
[2018-03-18 15:03] VITALS: BMI 25.0
[2018-11-10 13:22] VITALS: BP 112/69; PULSE 61; RESP 24; TEMP 36.8; O2SAT 98
--- NOTE | 2018-11-10 13:30 | DI.RAD.S_ITS ---
PROCEDURE: XR CHEST 1V INDICATIONS: chest pain TECHNIQUE: One view of the chest was acquired. COMPARISON: None. FINDINGS: Surgical changes and devices: None. Lungs and pleura: Interval improvement in aeration of the lungs is identified since the prior examination with interval resolution of left basilar consolidation. No new areas of pulmonary consolidation are evident. There is no effusion or pneumothorax. Mediastinum: Mediastinal contours appear normal. Heart size is normal. Bones and chest wall: No suspicious bony lesions. Overlying soft tissues appear unremarkable. IMPRESSION: Negative chest. No acute cardiopulmonary process is suspected. Dictated by: Bora Storey M.D. on 11/10/2018 at 12:51 Approved by: Bora Storey M.D. on 11/10/2018 at 12:51
[2018-11-10] MEDS: ASPIRIN 81 MG CHEW TAB 324 MG PO (13:43)
[2018-11-10 13:45] LABS: Add Manual Diff / Slide Review NO; Basophils Absolute Auto 0 /uL (0-100); Basophils Percent Auto 0.7 % (0-2); Eosinophils Absolute Auto 100 /uL (0-450); Eosinophils Percent Auto 1.2 % (2-4); Hematocrit 38.9 % (41-53); Hemoglobin 13.6 g/dL (13.5-17.5); Lymphocytes Absolute Auto 1400 /uL (1100-4500); Lymphocytes Percent Auto 20.4 % (25-40); Mean Corpuscular HGB Conc 34.9 % (30-36); Mean Corpuscular Hemoglobin 31.5 PG (26-34); Mean Corpuscular Volume 90.3 fL (80-100); Monocytes Absolute Auto 1000 /uL (0-900); Neutrophils Absolute Auto 4400 /uL (1500-7000); Neutrophils Percent Auto 63.7 % (50-75); Platelet Count 245 X10^3/uL (150-400); Red Blood Cell Count 4.31 X10^6/uL (4.5-5.9); Red Cell Distribution Width 13.4 % (11.6-14.8); White Blood Cell Count 6.8 X10^3/uL (4.5-11.0)
[2018-11-10 13:55] LABS: Alanine Aminotransferase 32 IU/L (21-72); Albumin 4.4 g/dL (3.5-5.0); Albumin Globulin Ratio 1.5 (1.0-2.8); Alkaline Phosphatase 40 U/L (38-126); Aspartate Aminotransferase 36 IU/L (17-59); Bilirubin Total 0.7 mg/dL (0.2-1.3); Blood Urea Nitrogen 12 mg/dL (9-20); Calcium 9.1 mg/dL (8.4-10.2); Carbon Dioxide 24 mmol/L (22-32); Chloride 105 mmol/L (98-107); Creatine Kinase 358 U/L (55-170); Estimated Glomerular Filt Rate > 60.0 mL/min (>60); Glucose 95 mg/dL (70-100); Lipase 91 U/L (23-300); Prothrombin Time 11.3 SECONDS (10.1-12.7); Sodium 139 mmol/L (137-145); Total Protein 7.4 g/dL (6.3-8.2)
[2018-11-10 14:02] LABS: HEMOLYSIS 61 (0-50)
[2018-11-10 14:03] LABS: Potassium 4.7 mmol/L (3.4-5.1)
[2018-11-10 14:04] LABS: B Type Natriuretic Peptide < 100 (<100)
[2018-11-10 14:07] LABS: Troponin I < 0.012 ng/mL (0.01-0.034)
[2018-11-10 14:10] LABS: CKMB % Relative Index 0.8 % (1.5-5.0); Creatine Kinase MB 2.74 ng/mL (<2.37)
--- NOTE | 2018-11-10 15:03 | ED.BACK ---
HPI - Back Pain/Injury <SHAHNAZ Bird - Last Filed: 11/10/18 18:53> General Chief Complaint: Back Pain/Injury Stated Complaint: Back pain behind left shoulder blade Time Seen by Provider: 11/10/18 13:24 Source: patient Mode of arrival: ambulatory Limitations: no limitations History of Present Illness HPI Narrative: The patient is a 47-year-old male former smoker with history of V-tach arrest who presents with a chief complaint of pain between his left shoulder blade. He states this has been going on since Monday. He has not taken anything for the pain. He thinks he has a muscle spasm related to his job, but is concerned about his heart given his cardiac history. Had stent placement, sees a perinatal educator, is on Plavix. He denies any associated lightheadedness, dizziness, nausea vomiting diarrhea or palpitations. Denies any abdominal pain. He states that the pain on his left shoulder blade is worsened by movement of his head as well as palpation. Related Data Home Medications Medication Instructions Recorded Confirmed aspirin 1 tab PO DAILY 03/19/18 10/31/18 Previous Rx's Medication Instructions Recorded nitroglycerin 0.3 mg sublingual 0.3 mg SL Q5M PRN #30 tab MDD 3 08/18/17 tablet tabs atorvastatin 40 mg tablet 40 mg PO HS #90 tab 10/31/18 clopidogrel 75 mg tablet 75 mg PO QDAY #90 tab 10/31/18 lisinopril 5 mg tablet 2.5 mg PO QDAY #45 tab 10/31/18 metoprolol succinate ER 100 mg 100 mg PO QDAY #90 tab 10/31/18 tablet,extended release 24 hr Allergies Allergy/AdvReac Type Severity Reaction Status Date / Time No Known Drug Allergies Allergy Verified 10/31/18 09:28 Review of Systems <SHAHNAZ Bird - Last Filed: 11/10/18 18:53> Review of Systems GENERAL: Denies chills, fatigue, malaise, fever, sweats. HEENT: Denies sinus pain, ear pain, sore throat, difficulty swallowing, dizziness. RESPIRATORY: Denies dyspnea, cough, wheezing, hemoptysis, sputum. CARDIOVASCULAR: Denies chest pain, palpitations, orthopnea, edema, GASTROINTESTINAL: Denies nausea, vomiting, abdominal pain, diarrhea, constipation, melena. : Denies dysuria, frequency, incontinence, hematuria, urinary retention. MUSCULOSKELETAL: denies weakness, joint pain, or bony pain SKIN: Denies rash, skin lesions, or other NEUROLOGIC: Denies weakness, headache, numbness, change in speech, confusion, seizures, incoordination. PSYCHIATRIC: No concerning psychosocial issues. 12 point review of systems is negative except for those stated above PFSH <SHAHNAZ Bird - Last Filed: 11/10/18 18:53> Medical History Cardiomyopathy (Acute Unknown) Coronary artery disease (Acute Unknown) Cardiac arrest (Resolved 04/2017) H/O ventricular tachycardia (Resolved 04/2017) Pneumonia (Resolved 04/2017) Surgical History S/P coronary artery stent placement (Resolved 04/2017) Status post knee surgery Family History Grandfather Heart disease Social History household members: none Smoking Status: Former smoker Tobacco: How many years used: 20 alcohol intake: current substance use type: marijuana (Every now and then a marijuana edible) Family History Grandfather Heart disease Social History household members: none Smoking Status: Former smoker Tobacco: How many years used: 20 alcohol intake: current substance use type: marijuana (Every now and then a marijuana edible) Exam <SHAHNAZ Bird - Last Filed: 11/10/18 18:53> Narrative Exam Narrative: GENERAL: This is a well-nourished, well-developed patient, no acute distress HEAD: Atraumatic. Normocephalic. No temporal or scalp tenderness. EYES: Pupils equal round and reactive. Extraocular motions intact. No scleral icterus. No injection or drainage. ENT: Nose without bleeding, purulent drainage or septal hematoma. Throat without erythema, tonsillar hypertrophy or exudate. Uvula midline. Airway patent. NECK: Trachea midline. No JVD or lymphadenopathy. Supple, nontender, no meningeal signs. CARDIOVASCULAR: Regular rate and rhythm RESPIRATORY: Clear to auscultation. Breath sounds equal bilaterally. No wheezes, rales, or rhonchi. No cough. No increased respiratory effort. No accessory muscle use. GASTROINTESTINAL: Abdomen soft, non-tender, nondistended. No hepato-splenomegaly, or palpable masses. No guarding. Active bowel sounds all 4 quadrants. EXTREMITIES: No clubbing, cyanosis, or edema. No joint tenderness, effusion, or edema noted. BACK: Nontender without deformity or crepitance. No flank tenderness. Pain has palpation a to left shoulder scapular area NEURO: AOx3. SKIN: No rash or erythema abrasion or laceration noted left scapula area or pain is Initial Vital Signs Initial Vital Signs: Vital Signs Temperature 98.2 F 11/10/18 13:22 Pulse Rate 61 11/10/18 13:22 Respiratory Rate 24 11/10/18 13:22 Blood Pressure 112/69 11/10/18 13:22 Pulse Oximetry 98 11/10/18 13:22 <Fernanda Richardson DO - Last Filed: 11/11/18 07:27> Initial Vital Signs Initial Vital Signs: Vital Signs Temperature 98.2 F 11/10/18 13:22 Pulse Rate 61 11/10/18 13:22 Respiratory Rate 24 11/10/18 13:22 Blood Pressure 112/69 11/10/18 13:22 Pulse Oximetry 98 11/10/18 13:22 Course <KAILYN Bird-BC - Last Filed: 11/10/18 18:53> Orders Ordered: Discontinued Medications Aspirin (Aspirin Chew) 324 mg PO NOW ONE Stop: 11/10/18 13:30 Last Admin: 11/10/18 13:43 Dose: 324 mg Ketorolac Tromethamine (Toradol) 30 mg IV NOW ONE Stop: 11/10/18 15:14 Last Admin: 11/10/18 15:59 Dose: 30 mg Vital Signs - 8 hr 11/10/18 13:22 11/10/18 15:40 11/10/18 16:42 Temperature 98.2 F Pulse Rate 61 47 L 48 L Respiratory Rate 24 16 17 Blood Pressure 112/69 Blood Pressure [Right Arm] 103/69 112/68 Pulse Oximetry 98 98 98 11/10/18 18:12 Temperature Pulse Rate 50 L Respiratory Rate 20 Blood Pressure 112/76 Blood Pressure [Right Arm] Pulse Oximetry 100 <Fernanda Richardson DO - Last Filed: 11/11/18 07:27> Orders Ordered: Discontinued Medications Aspirin (Aspirin Chew) 324 mg PO NOW ONE Stop: 11/10/18 13:30 Last Admin: 11/10/18 13:43 Dose: 324 mg Ketorolac Tromethamine (Toradol) 30 mg IV NOW ONE Stop: 11/10/18 15:14 Last Admin: 11/10/18 15:59 Dose: 30 mg Vital Signs - 8 hr 11/10/18 13:22 11/10/18 15:40 11/10/18 16:42 Temperature 98.2 F Pulse Rate 61 47 L 48 L Respiratory Rate 24 16 17 Blood Pressure 112/69 Blood Pressure [Right Arm] 103/69 112/68 Pulse Oximetry 98 98 98 11/10/18 18:12 Temperature Pulse Rate 50 L Respiratory Rate 20 Blood Pressure 112/76 Blood Pressure [Right Arm] Pulse Oximetry 100 MDM - Back Pain/Injury <KAILYN Bird-BC - Last Filed: 11/10/18 18:53> Lab Data Result diagrams: 11/10/18 13:37 11/10/18 13:37 Lab Results 11/10/18 11/10/18 11/10/18 Range/Units 13:37 13:37 13:37 WBC 6.8 (4.5-11.0) X10^3/uL RBC 4.31 L (4.5-5.9) X10^6/uL Hgb 13.6 (13.5-17.5) g/dL Hct 38.9 L (41-53) % MCV 90.3 (80-100) fL MCH 31.5 (26-34) PG MCHC 34.9 (30-36) % RDW 13.4 (11.6-14.8) % Plt Count 245 (150-400) X10^3/uL Neut % (Auto) 63.7 (50-75) % Lymph % (Auto) 20.4 L (25-40) % [place] % (Auto) 14.0 (3-14) % Eos % (Auto) 1.2 L (2-4) % Baso % (Auto) 0.7 (0-2) % Neut # (Auto) 4400 (4311-1746) /uL Lymph # (Auto) 1400 (1245-0925) /uL [place] # (Auto) 1000 H (0-900) /uL Eos # (Auto) 100 (0-450) /uL Baso # (Auto) 0 (0-100) /uL PT 11.3 (10.1-12.7) SECONDS INR 1.0 (0.9-1.3) Sodium (137-145) mmol/L Potassium (3.4-5.1) mmol/L Chloride (98-107) mmol/L Carbon Dioxide (22-32) mmol/L BUN (9-20) mg/dL Creatinine (0.66-1.25) mg/dL Estimated GFR (>60) mL/min BUN/Creatinine Ratio (6-22) Glucose (70-100) mg/dL Calcium (8.4-10.2) mg/dL Total Bilirubin (0.2-1.3) mg/dL AST (17-59) IU/L ALT (21-72) IU/L Alkaline Phosphatase (38-126) U/L Total Creatine Kinase (55-170) U/L CK-MB (CK-2) (<2.37) ng/mL CK-MB (CK-2) Rel Index (1.5-5.0) % Troponin I (0.01-0.034) ng/mL B-Natriuretic Peptide < 100 (<100) Total Protein (6.3-8.2) g/dL Albumin (3.5-5.0) g/dL Globulin (1.7-4.1) g/dL Albumin/Globulin Ratio (1.0-2.8) Lipase (23-300) U/L 11/10/18 11/10/18 Range/Units 13:37 16:30 WBC (4.5-11.0) X10^3/uL RBC (4.5-5.9) X10^6/uL Hgb (13.5-17.5) g/dL Hct (41-53) % MCV (80-100) fL MCH (26-34) PG MCHC (30-36) % RDW (11.6-14.8) % Plt Count (150-400) X10^3/uL Neut % (Auto) (50-75) % Lymph % (Auto) (25-40) % [place] % (Auto) (3-14) % Eos % (Auto) (2-4) % Baso % (Auto) (0-2) % Neut # (Auto) (7828-3156) /uL Lymph # (Auto) (0805-1104) /uL [place] # (Auto) (0-900) /uL Eos # (Auto) (0-450) /uL Baso # (Auto) (0-100) /uL PT (10.1-12.7) SECONDS INR (0.9-1.3) Sodium 139 (137-145) mmol/L Potassium 4.7 (3.4-5.1) mmol/L Chloride 105 (98-107) mmol/L Carbon Dioxide 24 (22-32) mmol/L BUN 12 (9-20) mg/dL Creatinine 0.80 (0.66-1.25) mg/dL Estimated GFR > 60.0 (>60) mL/min BUN/Creatinine Ratio 15.0 (6-22) Glucose 95 (70-100) mg/dL Calcium 9.1 (8.4-10.2) mg/dL Total Bilirubin 0.7 (0.2-1.3) mg/dL AST 36 (17-59) IU/L ALT 32 (21-72) IU/L Alkaline Phosphatase 40 (38-126) U/L Total Creatine Kinase 358 H 303 H (55-170) U/L CK-MB (CK-2) 2.74 H 2.63 H (<2.37) ng/mL CK-MB (CK-2) Rel Index 0.8 L 0.9 L (1.5-5.0) % Troponin I < 0.012 < 0.012 (0.01-0.034) ng/mL B-Natriuretic Peptide (<100) Total Protein 7.4 (6.3-8.2) g/dL Albumin 4.4 (3.5-5.0) g/dL Globulin 3.0 (1.7-4.1) g/dL Albumin/Globulin Ratio 1.5 (1.0-2.8) Lipase 91 (23-300) U/L Urine Dip Bedside Urine Glucose Negative Bedside Urine Bilirubin - Negative Bedside Urine Ketone - Negative Urine Specific [place] 1.020 Bedside Urine Occult Blood - Negative Bedside Urine pH 6.0 Bedside Urine Protein - Negative Bedside Urine Urobilinogen - Negative Bedside Urine Nitrite - Negative Bedside Urine Leukocytes - Negative Esterase Imaging Data Chest x-ray: Radiologist's impression: [address] [address] XRay Report Signed Patient: Hakeem Samuels MMR#: [id number] : 1970Acct:[id number] Age/Sex: 47 / MDate of Service: 11/10/18 Loc: ED Accession Number: [id number] Procedure: XR chest 1V Ordering Provider: Melina Jackson PROCEDURE: XR CHEST 1V INDICATIONS: chest pain TECHNIQUE: One view of the chest was acquired. COMPARISON: None. FINDINGS: Surgical changes and devices: None. Lungs and pleura: Interval improvement in aeration of the lungs is identified since the prior examination with interval resolution of left basilar consolidation. No new areas of pulmonary consolidation are evident. There is no effusion or pneumothorax. Mediastinum: Mediastinal contours appear normal. Heart size is normal. Bones and chest wall: No suspicious bony lesions. Overlying soft tissues appear unremarkable. IMPRESSION: Negative chest. No acute cardiopulmonary process is suspected. Dictated by: Bora Storey M.D. on 11/10/2018 at 12:51 Approved by: Bora Storey M.D. on 11/10/2018 at 12:51 ECG Data Attestation: I personally reviewed and interpreted this ECG as follows: Interpretation: Sinus bradycardia. Ventricular rate 55. No ST elevation depression noted. No ectopy noted. P.r. interval 141. QRS duration 93 MDM Narrative Medical decision making narrative: The patient is a 47-year-old male who presents with a chief complaint of left shoulder blade pain for concern of cardiac etiology. He does have a concerning history including a V-tach arrest. He declined atrial on arrival.. He had 2-troponins, a benign EKG. I did give him single dose of Toradol, which did he stated helped remove his pain. The fact that his pain is worse with palpation as well as change of motion of his head is reassuring. His complete pain-free status after Toradol is also reassuring. The patient requested to go home, and I am okay with this at this point time. I discussed at length follow up with PCP. Discussed coming back to the emergency department for any acute concerns such as, chest pain, shortness of breath, concern of heart attack or stroke. Also discussed with the patient that if he is concerned about his heart, he should not wait several days prior to evaluation. Patient states understanding and has no questions or concerns upon discharge. He states understanding of return precautions as well as follow-up care. <Fernanda Richardson, DO - Last Filed: 11/11/18 07:27> Lab Data Attestation: I reviewed the patient's lab results. Lab Results 11/10/18 11/10/18 11/10/18 Range/Units 13:37 13:37 13:37 WBC 6.8 (4.5-11.0) X10^3/uL RBC 4.31 L (4.5-5.9) X10^6/uL Hgb 13.6 (13.5-17.5) g/dL Hct 38.9 L (41-53) % MCV 90.3 (80-100) fL MCH 31.5 (26-34) PG MCHC 34.9 (30-36) % RDW 13.4 (11.6-14.8) % Plt Count 245 (150-400) X10^3/uL Neut % (Auto) 63.7 (50-75) % Lymph % (Auto) 20.4 L (25-40) % [place] % (Auto) 14.0 (3-14) % Eos % (Auto) 1.2 L (2-4) % Baso % (Auto) 0.7 (0-2) % Neut # (Auto) 4400 (3383-6867) /uL Lymph # (Auto) 1400 (4238-5368) /uL [place] # (Auto) 1000 H (0-900) /uL Eos # (Auto) 100 (0-450) /uL Baso # (Auto) 0 (0-100) /uL PT 11.3 (10.1-12.7) SECONDS INR 1.0 (0.9-1.3) Sodium (137-145) mmol/L Potassium (3.4-5.1) mmol/L Chloride (98-107) mmol/L Carbon Dioxide (22-32) mmol/L BUN (9-20) mg/dL Creatinine (0.66-1.25) mg/dL Estimated GFR (>60) mL/min BUN/Creatinine Ratio (6-22) Glucose (70-100) mg/dL Calcium (8.4-10.2) mg/dL Total Bilirubin (0.2-1.3) mg/dL AST (17-59) IU/L ALT (21-72) IU/L Alkaline Phosphatase (38-126) U/L Total Creatine Kinase (55-170) U/L CK-MB (CK-2) (<2.37) ng/mL CK-MB (CK-2) Rel Index (1.5-5.0) % Troponin I (0.01-0.034) ng/mL B-Natriuretic Peptide < 100 (<100) Total Protein (6.3-8.2) g/dL Albumin (3.5-5.0) g/dL Globulin (1.7-4.1) g/dL Albumin/Globulin Ratio (1.0-2.8) Lipase (23-300) U/L 11/10/18 11/10/18 Range/Units 13:37 16:30 WBC (4.5-11.0) X10^3/uL RBC (4.5-5.9) X10^6/uL Hgb (13.5-17.5) g/dL Hct (41-53) % MCV (80-100) fL MCH (26-34) PG MCHC (30-36) % RDW (11.6-14.8) % Plt Count (150-400) X10^3/uL Neut % (Auto) (50-75) % Lymph % (Auto) (25-40) % [place] % (Auto) (3-14) % Eos % (Auto) (2-4) % Baso % (Auto) (0-2) % Neut # (Auto) (2770-2214) /uL Lymph # (Auto) (1322-6603) /uL [place] # (Auto) (0-900) /uL Eos # (Auto) (0-450) /uL Baso # (Auto) (0-100) /uL PT (10.1-12.7) SECONDS INR (0.9-1.3) Sodium 139 (137-145) mmol/L Potassium 4.7 (3.4-5.1) mmol/L Chloride 105 (98-107) mmol/L Carbon Dioxide 24 (22-32) mmol/L BUN 12 (9-20) mg/dL Creatinine 0.80 (0.66-1.25) mg/dL Estimated GFR > 60.0 (>60) mL/min BUN/Creatinine Ratio 15.0 (6-22) Glucose 95 (70-100) mg/dL Calcium 9.1 (8.4-10.2) mg/dL Total Bilirubin 0.7 (0.2-1.3) mg/dL AST 36 (17-59) IU/L ALT 32 (21-72) IU/L Alkaline Phosphatase 40 (38-126) U/L Total Creatine Kinase 358 H 303 H (55-170) U/L CK-MB (CK-2) 2.74 H 2.63 H (<2.37) ng/mL CK-MB (CK-2) Rel Index 0.8 L 0.9 L (1.5-5.0) % Troponin I < 0.012 < 0.012 (0.01-0.034) ng/mL B-Natriuretic Peptide (<100) Total Protein 7.4 (6.3-8.2) g/dL Albumin 4.4 (3.5-5.0) g/dL Globulin 3.0 (1.7-4.1) g/dL Albumin/Globulin Ratio 1.5 (1.0-2.8) Lipase 91 (23-300) U/L Urine Dip Bedside Urine Glucose Negative Bedside Urine Bilirubin - Negative Bedside Urine Ketone - Negative Urine Specific [place] 1.020 Bedside Urine Occult Blood - Negative Bedside Urine pH 6.0 Bedside Urine Protein - Negative Bedside Urine Urobilinogen - Negative Bedside Urine Nitrite - Negative Bedside Urine Leukocytes - Negative Esterase ECG Data Attestation: I personally reviewed and interpreted this ECG as follows: Prior ECG tracings: not available for review Interpretation: Sinus rhythm rate 55 p.r. interval 141 T-wave inversion noted in lead [address] ST depression Discharge Plan Departure Patient Disposition: Home Clinical Impression: Back pain Qualifiers: Back pain location: thoracic back pain Chronicity: acute Back pain laterality: left Qualified Code(s): M54.6 - Pain in thoracic spine Discharge Date/Time: 11/10/18 18:13 Interventions: ED Discharge Assessment Last Done: 11/10/18 18:12 Instructions: DI for Muscle Strain, DI for Back Spasm, Thoracic Back Pain Activity Restrictions/Additional Instructions: Today we did a cardiac workup, which showed 2-troponins. You responded well to anti-inflammatory medication. Please come back to the emergency department for any acute concerns such as chest pain, shortness of breath, concern of heart attack or stroke As I discussed, given your history and risk factors, you are at high risk of cardiac event. Please have a very low threshold at returning to the emergency department. Please come back to the emergency department for any acute concerns. Please follow up with primary care provider. Prescriptions: No Action nitroglycerin 0.3 mg tablet, sublingual 0.3 mg SL Q5M MDD 3 tabs PRN (Reason: chest pain) Qty: 30 RF: 0 atorvastatin 40 mg tablet 40 mg PO HS Qty: 90 RF: 1 clopidogrel [Plavix] 75 mg tablet 75 mg PO QDAY Qty: 90 RF: 1 lisinopril 5 mg tablet 2.5 mg PO QDAY Qty: 45 RF: 1 metoprolol succinate 100 mg tablet extended release 24 hr 100 mg PO QDAY Qty: 90 RF: 1 aspirin 81 mg tablet,chewable 1 tab PO DAILY RF: 0 Referrals: Zahida Amor DO [Primary Care Provider] - <Fernanda Richardson DO - Last Filed: 11/11/18 07:27> Cosign ED Attending Cecille Attestation: I was immediately available in the department for consultation. Documentation has been reviewed. I agree with assessment and plan.
[2018-11-10 15:40] VITALS: BP 103/69; PULSE 47; RESP 16; O2SAT 98
[2018-11-10] MEDS: KETOROLAC 60 MG/2 ML VIAL 30 MG IV (15:59)
[2018-11-10 16:42] VITALS: BP 112/68; PULSE 48; RESP 17; O2SAT 98
[2018-11-10 17:09] LABS: Creatine Kinase 303 U/L (55-170)
[2018-11-10 17:22] LABS: Troponin I < 0.012 ng/mL (0.01-0.034)
[2018-11-10 17:24] LABS: CKMB % Relative Index 0.9 % (1.5-5.0); Creatine Kinase MB 2.63 ng/mL (<2.37)
[2018-11-10 18:12] VITALS: BP 112/76; PULSE 50; RESP 20; O2SAT 100
--- NOTE | 2018-11-10 18:49 | ED_ITS ---
HPI - Back Pain/Injury <SHAHNAZ Bird - Last Filed: 11/10/18 18:53> General Chief Complaint: Back Pain/Injury Stated Complaint: Back pain behind left shoulder blade Time Seen by Provider: 11/10/18 13:24 Source: patient Mode of arrival: ambulatory Limitations: no limitations History of Present Illness HPI Narrative: The patient is a 47-year-old male former smoker with history of V-tach arrest who presents with a chief complaint of pain between his left shoulder blade. He states this has been going on since Monday. He has not taken anything for the pain. He thinks he has a muscle spasm related to his job, but is concerned about his heart given his cardiac history. Had stent placement, sees a service unit operator oil well, is on Plavix. He denies any associated lightheadedness, dizziness, nausea vomiting diarrhea or palpitations. Denies any abdominal pain. He states that the pain on his left shoulder blade is worsened by movement of his head as well as palpation. Related Data Home Medications Medication Instructions Recorded Confirmed aspirin 1 tab PO DAILY 03/19/18 10/31/18 Previous Rx's Medication Instructions Recorded nitroglycerin 0.3 mg sublingual 0.3 mg SL Q5M PRN #30 tab MDD 3 08/18/17 tablet tabs atorvastatin 40 mg tablet 40 mg PO HS #90 tab 10/31/18 clopidogrel 75 mg tablet 75 mg PO QDAY #90 tab 10/31/18 lisinopril 5 mg tablet 2.5 mg PO QDAY #45 tab 10/31/18 metoprolol succinate ER 100 mg 100 mg PO QDAY #90 tab 10/31/18 tablet,extended release 24 hr Allergies Allergy/AdvReac Type Severity Reaction Status Date / Time No Known Drug Allergies Allergy Verified 10/31/18 09:28 Review of Systems <SHAHNAZ Bird - Last Filed: 11/10/18 18:53> Review of Systems GENERAL: Denies chills, fatigue, malaise, fever, sweats. HEENT: Denies sinus pain, ear pain, sore throat, difficulty swallowing, dizziness. RESPIRATORY: Denies dyspnea, cough, wheezing, hemoptysis, sputum. CARDIOVASCULAR: Denies chest pain, palpitations, orthopnea, edema, GASTROINTESTINAL: Denies nausea, vomiting, abdominal pain, diarrhea, constipat ion, melena. : Denies dysuria, frequency, incontinence, hematuria, urinary retention. MUSCULOSKELETAL: denies weakness, joint pain, or bony pain SKIN: Denies rash, skin lesions, or other NEUROLOGIC: Denies weakness, headache, numbness, change in speech, confusion, seizures, incoordination. PSYCHIATRIC: No concerning psychosocial issues. 12 point review of systems is negative except for those stated above PFSH <SHAHNAZ Bird - Last Filed: 11/10/18 18:53> Medical History Cardiomyopathy (Acute Unknown) Coronary artery disease (Acute Unknown) Cardiac arrest (Resolved 04/2017) H/O ventricular tachycardia (Resolved 04/2017) Pneumonia (Resolved 04/2017) Surgical History S/P coronary artery stent placement (Resolved 04/2017) Status post knee surgery Family History Grandfather Heart disease Social History household members: none Smoking Status: Former smoker Tobacco: How many years used: 20 alcohol intake: current substance use type: marijuana (Every now and then a marijuana edible) Family History Grandfather Heart disease Social History household members: none Smoking Status: Former smoker Tobacco: How many years used: 20 alcohol intake: current substance use type: marijuana (Every now and then a marijuana edible) Exam <SHAHNAZ Bird - Last Filed: 11/10/18 18:53> Narrative Exam Narrative: GENERAL: This is a well-nourished, well-developed patient, no acute distress HEAD: Atraumatic. Normocephalic. No temporal or scalp tenderness. EYES: Pupils equal round and reactive. Extraocular motions intact. No scleral icterus. No injection or drainage. ENT: Nose without bleeding, purulent drainage or septal hematoma. Throat without erythema, tonsillar hypertrophy or exudate. Uvula midline. Airway patent. NECK: Trachea midline. No JVD or lymphadenopathy. Supple, nontender, no meningeal signs. CARDIOVASCULAR: Regular rate and rhythm RESPIRATORY: Clear to auscultation. Breath sounds equal bilaterally. No wheezes, rales, or rhonchi. No cough. No increased respiratory effort. No accessory muscle use. GASTROINTESTINAL: Abdomen soft, non-tender, nondistended. No hepato- splenomegaly, or palpable masses. No guarding. Active bowel sounds all 4 quadrants. EXTREMITIES: No clubbing, cyanosis, or edema. No joint tenderness, effusion, or edema noted. BACK: Nontender without deformity or crepitance. No flank tenderness. Pain has palpation a to left shoulder scapular area NEURO: AOx3. SKIN: No rash or erythema abrasion or laceration noted left scapula area or pain is Initial Vital Signs Initial Vital Signs: Vital Signs Temperature 98.2 F 11/10/18 13:22 Pulse Rate 61 11/10/18 13:22 Respiratory Rate 24 11/10/18 13:22 Blood Pressure 112/69 11/10/18 13:22 Pulse Oximetry 98 11/10/18 13:22 <Fernanda Richardson DO - Last Filed: 11/11/18 07:27> Initial Vital Signs Initial Vital Signs: Vital Signs Temperature 98.2 F 11/10/18 13:22 Pulse Rate 61 11/10/18 13:22 Respiratory Rate 24 11/10/18 13:22 Blood Pressure 112/69 11/10/18 13:22 Pulse Oximetry 98 11/10/18 13:22 Course <KAILYN Bird-ROLANDO - Last Filed: 11/10/18 18:53> Orders Ordered: Discontinued Medications Aspirin (Aspirin Chew) 324 mg PO NOW ONE Stop: 11/10/18 13:30 Last Admin: 11/10/18 13:43 Dose: 324 mg Ketorolac Tromethamine (Toradol) 30 mg IV NOW ONE Stop: 11/10/18 15:14 Last Admin: 11/10/18 15:59 Dose: 30 mg Vital Signs - 8 hr 11/10/18 13:22 11/10/18 15:40 11/10/18 16:42 Temperature 98.2 F Pulse Rate 61 47 L 48 L Respiratory Rate 24 16 17 Blood Pressure 112/69 Blood Pressure [Right Arm] 103/69 112/68 Pulse Oximetry 98 98 98 11/10/18 18:12 Temperature Pulse Rate 50 L Respiratory Rate 20 Blood Pressure 112/76 Blood Pressure [Right Arm] Pulse Oximetry 100 <Fernanda Richardson DO - Last Filed: 11/11/18 07:27> Orders Ordered: Discontinued Medications Aspirin (Aspirin Chew) 324 mg PO NOW ONE Stop: 11/10/18 13:30 Last Admin: 11/10/18 13:43 Dose: 324 mg Ketorolac Tromethamine (Toradol) 30 mg IV NOW ONE Stop: 11/10/18 15:14 Last Admin: 11/10/18 15:59 Dose: 30 mg Vital Signs - 8 hr 11/10/18 13:22 11/10/18 15:40 11/10/18 16:42 Temperature 98.2 F Pulse Rate 61 47 L 48 L Respiratory Rate 24 16 17 Blood Pressure 112/69 Blood Pressure [Right Arm] 103/69 112/68 Pulse Oximetry 98 98 98 11/10/18 18:12 Temperature Pulse Rate 50 L Respiratory Rate 20 Blood Pressure 112/76 Blood Pressure [Right Arm] Pulse Oximetry 100 MDM - Back Pain/Injury <KAILYN Bird-BC - Last Filed: 11/10/18 18:53> Lab Data Result diagrams: 11/10/18 13:37 11/10/18 13:37 Lab Results 11/10/18 11/10/18 11/10/18 Range/Units 13:37 13:37 13:37 WBC 6.8 (4.5-11.0) X10^3/uL RBC 4.31 L (4.5-5.9) X10^6/uL Hgb 13.6 (13.5-17.5) g/dL Hct 38.9 L (41-53) % MCV 90.3 (80-100) fL MCH 31.5 (26-34) PG MCHC 34.9 (30-36) % RDW 13.4 (11.6-14.8) % Plt Count 245 (150-400) X10^3/uL Neut % (Auto) 63.7 (50-75) % Lymph % (Auto) 20.4 L (25-40) % Kaufman % (Auto) 14.0 (3-14) % Eos % (Auto) 1.2 L (2-4) % Baso % (Auto) 0.7 (0-2) % Neut # (Auto) 4400 (2222-6880) /uL Lymph # (Auto) 1400 (4717-9790) /uL Kaufman # (Auto) 1000 H (0-900) /uL Eos # (Auto) 100 (0-450) /uL Baso # (Auto) 0 (0-100) /uL PT 11.3 (10.1-12.7) SECONDS INR 1.0 (0.9-1.3) Sodium (137-145) mmol/L Potassium (3.4-5.1) mmol/L Chloride (98-107) mmol/L Carbon Dioxide (22-32) mmol/L BUN (9-20) mg/dL Creatinine (0.66-1.25) mg/dL Estimated GFR (>60) mL/min BUN/Creatinine Ratio (6-22) Glucose (70-100) mg/dL Calcium (8.4-10.2) mg/dL Total Bilirubin (0.2-1.3) mg/dL AST (17-59) IU/L ALT (21-72) IU/L Alkaline Phosphatase (38-126) U/L Total Creatine Kinase (55-170) U/L CK-MB (CK-2) (<2.37) ng/mL CK-MB (CK-2) Rel Index (1.5-5.0) % Troponin I (0.01-0.034) ng/mL B-Natriuretic Peptide < 100 (<100) Total Protein (6.3-8.2) g/dL Albumin (3.5-5.0) g/dL Globulin (1.7-4.1) g/dL Albumin/Globulin Ratio (1.0-2.8) Lipase (23-300) U/L 11/10/18 11/10/18 Range/Units 13:37 16:30 WBC (4.5-11.0) X10^3/uL RBC (4.5-5.9) X10^6/uL Hgb (13.5-17.5) g/dL Hct (41-53) % MCV (80-100) fL MCH (26-34) PG MCHC (30-36) % RDW (11.6-14.8) % Plt Count (150-400) X10^3/uL Neut % (Auto) (50-75) % Lymph % (Auto) (25-40) % Kaufman % (Auto) (3-14) % Eos % (Auto) (2-4) % Baso % (Auto) (0-2) % Neut # (Auto) (4040-1783) /uL Lymph # (Auto) (3772-1262) /uL Kaufman # (Auto) (0-900) /uL Eos # (Auto) (0-450) /uL Baso # (Auto) (0-100) /uL PT (10.1-12.7) SECONDS INR (0.9-1.3) Sodium 139 (137-145) mmol/L Potassium 4.7 (3.4-5.1) mmol/L Chloride 105 (98-107) mmol/L Carbon Dioxide 24 (22-32) mmol/L BUN 12 (9-20) mg/dL Creatinine 0.80 (0.66-1.25) mg/dL Estimated GFR > 60.0 (>60) mL/min BUN/Creatinine Ratio 15.0 (6-22) Glucose 95 (70-100) mg/dL Calcium 9.1 (8.4-10.2) mg/dL Total Bilirubin 0.7 (0.2-1.3) mg/dL AST 36 (17-59) IU/L ALT 32 (21-72) IU/L Alkaline Phosphatase 40 (38-126) U/L Total Creatine Kinase 358 H 303 H (55-170) U/L CK-MB (CK-2) 2.74 H 2.63 H (<2.37) ng/mL CK-MB (CK-2) Rel Index 0.8 L 0.9 L (1.5-5.0) % Troponin I < 0.012 < 0.012 (0.01-0.034) ng/mL B-Natriuretic Peptide (<100) Total Protein 7.4 (6.3-8.2) g/dL Albumin 4.4 (3.5-5.0) g/dL Globulin 3.0 (1.7-4.1) g/dL Albumin/Globulin Ratio 1.5 (1.0-2.8) Lipase 91 (23-300) U/L Urine Dip Bedside Urine Glucose Negative Bedside Urine Bilirubin - Negative Bedside Urine Ketone - Negative Urine Specific Delton 1.020 Bedside Urine Occult Blood - Negative Bedside Urine pH 6.0 Bedside Urine Protein - Negative Bedside Urine Urobilinogen - Negative Bedside Urine Nitrite - Negative Bedside Urine Leukocytes - Negative Esterase Imaging Data Chest x-ray: Radiologist's impression: [address] [address] XRay Report Signed Patient: Hakeem Samuels MMR#: [id number] : 1970Acct:[id number] Age/Sex: 47 / MDate of Service: 11/10/18 Loc: ED Accession Number: [id number] Procedure: XR chest 1V Ordering Provider: Melina Jackson-ROLANDO PROCEDURE: XR CHEST 1V INDICATIONS: chest pain TECHNIQUE: One view of the chest was acquired. COMPARISON: None. FINDINGS: Surgical changes and devices: None. Lungs and pleura: Interval improvement in aeration of the lungs is identified since the prior examination with interval resolution of left basilar consolidation. No new areas of pulmonary consolidation are evident. There is no effusion or pneumothorax. Mediastinum: Mediastinal contours appear normal. Heart size is normal. Bones and chest wall: No suspicious bony lesions. Overlying soft tissues appear unremarkable. IMPRESSION: Negative chest. No acute cardiopulmonary process is suspected. Dictated by: Bora Storey M.D. on 11/10/2018 at 12:51 Approved by: Bora Storey M.D. on 11/10/2018 at 12:51 ECG Data Attestation: I personally reviewed and interpreted this ECG as follows: Interpretation: Sinus bradycardia. Ventricular rate 55. No ST elevation depression noted. No ectopy noted. P.r. interval 141. QRS duration 93 MDM Narrative Medical decision making narrative: The patient is a 47-year-old male who presents with a chief complaint of left shoulder blade pain for concern of cardiac etiology. He does have a concerning history including a V-tach arrest. He declined atrial on arrival.. He had 2-troponins, a benign EKG. I did give him single dose of Toradol, which did he stated helped remove his pain. The fact that his pain is worse with palpation as well as change of motion of his head is reassuring. His complete pain-free status after Toradol is also reassuring. The patient requested to go home, and I am okay with this at this point time. I discussed at length follow up with PCP. Discussed coming back to the emergency department for any acute concerns such as, chest pain, shortness of breath, concern of heart attack or stroke. Also discussed with the patient that if he is concerned about his heart, he should not wait several days prior to evaluation. Patient states understanding and has no questions or concerns upon discharge. He states understanding of return precautions as well as follow-up care. <Fernanda Richardson, DO - Last Filed: 11/11/18 07:27> Lab Data Attestation: I reviewed the patient's lab results. Lab Results 11/10/18 11/10/18 11/10/18 Range/Units 13:37 13:37 13:37 WBC 6.8 (4.5-11.0) X10^3/uL RBC 4.31 L (4.5-5.9) X10^6/uL Hgb 13.6 (13.5-17.5) g/dL Hct 38.9 L (41-53) % MCV 90.3 (80-100) fL MCH 31.5 (26-34) PG MCHC 34.9 (30-36) % RDW 13.4 (11.6-14.8) % Plt Count 245 (150-400) X10^3/uL Neut % (Auto) 63.7 (50-75) % Lymph % (Auto) 20.4 L (25-40) % Kaufman % (Auto) 14.0 (3-14) % Eos % (Auto) 1.2 L (2-4) % Baso % (Auto) 0.7 (0-2) % Neut # (Auto) 4400 (0606-2205) /uL Lymph # (Auto) 1400 (5962-6603) /uL Kaufman # (Auto) 1000 H (0-900) /uL Eos # (Auto) 100 (0-450) /uL Baso # (Auto) 0 (0-100) /uL PT 11.3 (10.1-12.7) SECONDS INR 1.0 (0.9-1.3) Sodium (137-145) mmol/L Potassium (3.4-5.1) mmol/L Chloride (98-107) mmol/L Carbon Dioxide (22-32) mmol/L BUN (9-20) mg/dL Creatinine (0.66-1.25) mg/dL Estimated GFR (>60) mL/min BUN/Creatinine Ratio (6-22) Glucose (70-100) mg/dL Calcium (8.4-10.2) mg/dL Total Bilirubin (0.2-1.3) mg/dL AST (17-59) IU/L ALT (21-72) IU/L Alkaline Phosphatase (38-126) U/L Total Creatine Kinase (55-170) U/L CK-MB (CK-2) (<2.37) ng/mL CK-MB (CK-2) Rel Index (1.5-5.0) % Troponin I (0.01-0.034) ng/mL B-Natriuretic Peptide < 100 (<100) Total Protein (6.3-8.2) g/dL Albumin (3.5-5.0) g/dL Globulin (1.7-4.1) g/dL Albumin/Globulin Ratio (1.0-2.8) Lipase (23-300) U/L 11/10/18 11/10/18 Range/Units 13:37 16:30 WBC (4.5-11.0) X10^3/uL RBC (4.5-5.9) X10^6/uL Hgb (13.5-17.5) g/dL Hct (41-53) % MCV (80-100) fL MCH (26-34) PG MCHC (30-36) % RDW (11.6-14.8) % Plt Count (150-400) X10^3/uL Neut % (Auto) (50-75) % Lymph % (Auto) (25-40) % Kaufman % (Auto) (3-14) % Eos % (Auto) (2-4) % Baso % (Auto) (0-2) % Neut # (Auto) (8853-7889) /uL Lymph # (Auto) (3584-6287) /uL Kaufman # (Auto) (0-900) /uL Eos # (Auto) (0-450) /uL Baso # (Auto) (0-100) /uL PT (10.1-12.7) SECONDS INR (0.9-1.3) Sodium 139 (137-145) mmol/L Potassium 4.7 (3.4-5.1) mmol/L Chloride 105 (98-107) mmol/L Carbon Dioxide 24 (22-32) mmol/L BUN 12 (9-20) mg/dL Creatinine 0.80 (0.66-1.25) mg/dL Estimated GFR > 60.0 (>60) mL/min BUN/Creatinine Ratio 15.0 (6-22) Glucose 95 (70-100) mg/dL Calcium 9.1 (8.4-10.2) mg/dL Total Bilirubin 0.7 (0.2-1.3) mg/dL AST 36 (17-59) IU/L ALT 32 (21-72) IU/L Alkaline Phosphatase 40 (38-126) U/L Total Creatine Kinase 358 H 303 H (55-170) U/L CK-MB (CK-2) 2.74 H 2.63 H (<2.37) ng/mL CK-MB (CK-2) Rel Index 0.8 L 0.9 L (1.5-5.0) % Troponin I < 0.012 < 0.012 (0.01-0.034) ng/mL B-Natriuretic Peptide (<100) Total Protein 7.4 (6.3-8.2) g/dL Albumin 4.4 (3.5-5.0) g/dL Globulin 3.0 (1.7-4.1) g/dL Albumin/Globulin Ratio 1.5 (1.0-2.8) Lipase 91 (23-300) U/L Urine Dip Bedside Urine Glucose Negative Bedside Urine Bilirubin - Negative Bedside Urine Ketone - Negative Urine Specific Delton 1.020 Bedside Urine Occult Blood - Negative Bedside Urine pH 6.0 Bedside Urine Protein - Negative Bedside Urine Urobilinogen - Negative Bedside Urine Nitrite - Negative Bedside Urine Leukocytes - Negative Esterase ECG Data Attestation: I personally reviewed and interpreted this ECG as follows: Prior ECG tracings: not available for review Interpretation: Sinus rhythm rate 55 p.r. interval 141 T-wave inversion noted in lead [address] ST depression Discharge Plan Departure Patient Disposition: Home Clinical Impression: Back pain Qualifiers: Back pain location: thoracic back pain Chronicity: acute Back pain laterality: left Qualified Code(s): M54.6 - Pain in thoracic spine Discharge Date/Time: 11/10/18 18:13 Interventions: ED Discharge Assessment Last Done: 11/10/18 18:12 Instructions: DI for Muscle Strain, DI for Back Spasm, Thoracic Back Pain Activity Restrictions/Additional Instructions: Today we did a cardiac workup, which showed 2-troponins. You responded well to anti-inflammatory medication. Please come back to the emergency department for any acute concerns such as chest pain, shortness of breath, concern of heart attack or stroke As I discussed, given your history and risk factors, you are at high risk of cardiac event. Please have a very low threshold at returning to the emergency department. Please come back to the emergency department for any acute concerns. Please follow up with primary care provider. Prescriptions: No Action nitroglycerin 0.3 mg tablet, sublingual 0.3 mg SL Q5M MDD 3 tabs PRN (Reason: chest pain) Qty: 30 RF: 0 atorvastatin 40 mg tablet 40 mg PO HS Qty: 90 RF: 1 clopidogrel [Plavix] 75 mg tablet 75 mg PO QDAY Qty: 90 RF: 1 lisinopril 5 mg tablet 2.5 mg PO QDAY Qty: 45 RF: 1 metoprolol succinate 100 mg tablet extended release 24 hr 100 mg PO QDAY Qty: 90 RF: 1 aspirin 81 mg tablet,chewable 1 tab PO DAILY RF: 0 Referrals: Zahida Amor DO [Primary Care Provider] - <Fernanda Richardson DO - Last Filed: 11/11/18 07:27> [facility] Attending Cecille Attestation: I was immediately available in the department for consultation. Documentation has been reviewed. I agree with assessment and plan.
== END 2018-11-10 18:13 | disposition home or self-care (01) ==
PROVIDERS: Emergency Provider Nurse Practitioner Family; PCP Family Medicine
DX: M54.6 Pain in thoracic spine (principal); R00.1 Bradycardia, unspecified
CPT/HCPCS: 36415; 36591; 71045; 80053; 81003; 82550; 82553; 83690; 83880; 84484; 85025; 85610; 93005; 96374; 99282; 99285; J1885

== ENCOUNTER 2019-06-16 13:33 | Emergency (ER) | payer OTHER, MEDICAID, SELFPAY ==
[2018-03-18 15:03] VITALS: BMI 25.0
[2019-06-16 13:47] VITALS: BP 130/97; PULSE 83; RESP 20; TEMP 37.5; O2SAT 99
--- NOTE | 2019-06-16 13:58 | PC.NURSE ---
Placed patient in paper scrubs and placed personal belongings in locker. Informed patient of need for urine and blood. Patient is calm and cooperative.
[2019-06-16 14:21] VITALS: BMI 23.3
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
[2019-06-16 14:57] LABS: Add Manual Diff / Slide Review NO; Basophils Absolute Auto 100 /uL (0-100); Basophils Percent Auto 0.4 % (0-2); Eosinophils Absolute Auto 0 /uL (0-450); Eosinophils Percent Auto 0.3 % (2-4); Hematocrit 42.6 % (41-53); Hemoglobin 14.6 g/dL (13.5-17.5); Lymphocytes Absolute Auto 1100 /uL (1100-4500); Lymphocytes Percent Auto 7.3 % (25-40); Mean Corpuscular HGB Conc 34.2 % (30-36); Mean Corpuscular Volume 90.7 fL (80-100); Monocytes Absolute Auto 1200 /uL (0-900); Neutrophils Absolute Auto 12100 /uL (1500-7000); Platelet Count 263 X10^3/uL (150-400); Red Cell Distribution Width 13.4 % (11.6-14.8); White Blood Cell Count 14.4 X10^3/uL (4.5-11.0)
[2019-06-16 15:13] LABS: Acetaminophen < 10 ug/mL (10-30); Alanine Aminotransferase 43 IU/L (<50); Albumin 4.8 g/dL (3.5-5.0); Albumin Globulin Ratio 1.5 (1.0-2.8); Alkaline Phosphatase 45 U/L (38-126); Aspartate Aminotransferase 35 IU/L (17-59); BUN Creatinine Ratio 11.4 (6-22); Bilirubin Total 0.4 mg/dL (0.2-1.3); Blood Urea Nitrogen 12 mg/dL (9-20); Calcium 10.2 mg/dL (8.4-10.2); Carbon Dioxide 28 mmol/L (22-32); Chloride 104 mmol/L (98-107); Estimated Glomerular Filt Rate > 60.0 mL/min (>60); Ethanol (ETOH) < 10 mg/dL; Globulin 3.3 g/dL (1.7-4.1); Glucose 140 mg/dL (70-100); HEMOLYSIS < 15 (0-50); Potassium 4.8 mmol/L (3.4-5.1); Salicylate < 1.0 mg/dL (<20); Sodium 141 mmol/L (137-145); Total Protein 8.1 g/dL (6.3-8.2)
[2019-06-16 15:40] LABS: Ur Creatinine 50 (Normal); Ur Specific Gravity 1.025 (Normal)
[2019-06-16 15:41] LABS: UR Morphine/Opiate cutoff 300 Positive (Negative); Urine Amphetamines Negative (Negative); Urine Barbiturates Negative (Negative); Urine Benzodiazepines Negative (Negative); Urine Cocaine Negative (Negative); Urine MDMA Negative (Negative); Urine Methadone Negative (Negative); Urine Methamphetamines Negative (Negative); Urine Oxycodone Positive (Negative); Urine Phencyclidine Negative (Negative); Urine Tetrahydrocannabinol Positive (Negative); Urine Tricyclic Antidepressant Negative (Negative); Urine pH 7 (Normal)
[2019-06-16 15:41] LABS: Bacteria Urine None Seen; WBC Urine None Seen (0-5/HPF)
[2019-06-16 15:42] LABS: Appearance Urine UA CLEAR; Bilirubin Urine UA NEGATIVE (NEGATIVE); Color Urine UA YELLOW; Glucose Urine UA NEGATIVE (Negative); Ketones Urine UA NEGATIVE (NEGATIVE); Leukocyte Esterase Urine UA NEGATIVE (NEGATIVE); Nitrite Urine UA NEGATIVE (Negative); Occult Blood Urine UA NEGATIVE (Negative); Protein Urine UA TRACE (Negative); Urobilinogen Urine UA 0.2 E.U./dL (0.2)
[2019-06-16 15:49] LABS: Amorphous Sediment Urine 2+; Culture Indicated Urine Cult Not Indicated; Hyaline Casts Urine 0-1/LPF; Mucus Urine 2+ (Negative); RBC Urine 0-1/HPF (0-5/HPF); Squamous Epithelial Cell Urine 0-1 /HPF (0-5/HPF)
[2019-06-17 01:23] VITALS: BP 127/85; PULSE 67; RESP 16; TEMP 36.6; O2SAT 98
--- NOTE | 2019-06-17 01:36 | PC.NURSE ---
With DCR Having conversation
[2019-06-17 03:37] LABS: Add Manual Diff / Slide Review NO; Basophils Absolute Auto 100 /uL (0-100); Basophils Percent Auto 0.7 % (0-2); Eosinophils Absolute Auto 100 /uL (0-450); Eosinophils Percent Auto 0.7 % (2-4); Lymphocytes Absolute Auto 1500 /uL (1100-4500); Mean Corpuscular HGB Conc 34.3 % (30-36); Mean Corpuscular Hemoglobin 31.2 PG (26-34); Mean Corpuscular Volume 91.1 fL (80-100); Monocytes Absolute Auto 1000 /uL (0-900); Monocytes Percent Auto 10.6 % (3-14); Neutrophils Absolute Auto 6400 /uL (1500-7000); Platelet Count 256 X10^3/uL (150-400); Red Cell Distribution Width 13.5 % (11.6-14.8)
--- NOTE | 2019-06-17 10:42 | PC.NURSE ---
patient in room 13 [employer] here to see patient and work on the plan for placement. She is calling the DCR to see what exactly is the plan
--- NOTE | 2019-06-17 11:19 | CM.SWNOTE ---
DECK[employer] FISHING VESSEL Note: Reviewed chart. Received request from ED staff to assist with placement for suspected ANAHI patient. Per Dr. Alanis and ED staff. JOSE/Juan J was here last pm attempting bed placement. Unfortunately, no ANAHI beds found. However, he started conversation with [facility]. Per ED staff, [facility] [employer] VESSEL instructed to follow up in AM 3-30-20 (today). [employer] FISHING VESSEL placed call to [facility] at # [phone] spoke with Eloisa she report that they did receive information from JOSE/Juan J last pm. Eloisa reports that she has had minimal time to review and unsure if they can accept. Therefore, completed medical clearance attestation and [employer] VESSEL placed call to crisis requesting DCR dispatch. Met with patient explained [employer] FISHING VESSEL role. Patient continues to be irrational and reports that he would like his garbage collector. Patient reports to [employer] FISHING VESSEL that he plans to leave [facility] around 1:00pm. today. Staff notified. P: DCR dispatch for involuntary placement. KRIS Villeda
--- NOTE | 2019-06-17 12:55 | PC.NURSE ---
[facility] called, spoke w/ Caridad. They asked for a repeat EKG and cardiac enzymes. [phone]/ fax [phone].
[2019-06-17 13:12] VITALS: BP 120/77; PULSE 80; RESP 14; TEMP 36.8; O2SAT 100
--- NOTE | 2019-06-17 13:20 | PC.NURSE ---
[facility] joanna called and wanted another EKG, blood work and a new set of vital signs before accepting him. MD went into room to explain that he needs to stay for these things. Lunch provided to patient .
[2019-06-17 13:27] LABS: Creatine Kinase 210 U/L (55-170)
[2019-06-17 13:40] LABS: Troponin I < 0.012 ng/mL (0.01-0.034)
[2019-06-17 13:42] LABS: CKMB % Relative Index 0.5 % (1.5-5.0); Creatine Kinase MB 1.02 ng/mL (<2.37)
--- NOTE | 2019-06-17 13:44 | PC.NURSE ---
Assumed care of pt from YEMI Beebe. Safety checks performed. EKG was repeated and cardiac enzymes drawn per Abram Suarez. Awaiting ANAHI bed acceptance. Pt in room 13 with door closed at this time. Seclusion for agitation and threatening to walk out of ED. Restraint order in place. Pt rocking back and forth and talking to himself in room. Lunch provided. Remains on stretcher at this time on 1:1 continuous observation.
--- NOTE | 2019-06-17 14:15 | PC.NURSE ---
Faxed Repeat EKG as well as lab results to [facility]. Reviewed by Dr. Banda. All within normal limits.
--- NOTE | 2019-06-17 15:17 | PC.NURSE ---
report given to YEMI Henderson
--- NOTE | 2019-06-17 17:01 | PC.NURSE ---
[facility] has accepted @ [phone]. Juan J (DCR) coming w/ ANAHI paperwork.
--- NOTE | 2019-06-17 17:05 | PC.NURSE ---
At 1644 spoke with nurse from [facility].Was advised that pt has been accepted.DCR notified & will be in to cert pt with appropriate paperwork. The nurse advised pt must be detained by DCR officially no later than 2300 tonight.A question arose that pt had stated he had been to [place].Nurse requested clarification on this as to when pt was there.Spoke with pt.He states he was in [place] last Summer (August or 2018. This info passed on to [facility] nurse taking report.Updated charge nurse Emy BRAGG with info.
--- NOTE | 2019-06-17 17:05 | PC.NURSE ---
YEMI Quevedo unlocked and opened door. [facility]
--- NOTE | 2019-06-17 17:43 | PC.NURSE ---
Pt laying in bed. calm. Non verbal at this time. Door opened. Pt got up, came to door and then layed back down.
[2019-06-17 18:13] VITALS: BP 130/72; PULSE 78; RESP 14; TEMP 36.9; O2SAT 97
--- NOTE | 2019-06-17 19:01 | PC.NURSE ---
[facility] is here to pickup the pt and transport him to [facility].
== END 2019-06-17 19:10 ==
PROVIDERS: Emergency Medicine; Emergency Provider Emergency Medicine; PCP Family Medicine
DX: F32.3 Major depressive disorder, single episode, severe with psychotic features (principal); F11.10 Opioid abuse, uncomplicated
CPT/HCPCS: 36415; 80053; 80305; 80320; 80329; 81001; 82550; 82553; 82962; 84443; 84484; 85025; 93005; 99285; G0480

== ENCOUNTER 2019-08-04 14:58 | Emergency (ER) | payer OTHER, MEDICAID, SELFPAY ==
[2018-03-18 15:03] VITALS: BMI 25.0
[2019-08-04 15:03] VITALS: BP 130/92; PULSE 85; RESP 16; TEMP 37.2; O2SAT 97; BMI 23.3
[2019-08-04 15:34] LABS: Add Manual Diff / Slide Review NO; Basophils Absolute Auto 100 /uL (0-100); Basophils Percent Auto 0.8 % (0-2); Eosinophils Absolute Auto 100 /uL (0-450); Eosinophils Percent Auto 1.1 % (2-4); Hematocrit 47.7 % (41-53); Lymphocytes Absolute Auto 1600 /uL (1100-4500); Lymphocytes Percent Auto 20.7 % (25-40); Mean Corpuscular HGB Conc 33.6 % (30-36); Mean Corpuscular Hemoglobin 30.4 PG (26-34); Mean Corpuscular Volume 90.3 fL (80-100); Monocytes Absolute Auto 900 /uL (0-900); Monocytes Percent Auto 11.4 % (3-14); Neutrophils Absolute Auto 5100 /uL (1500-7000); Platelet Count 270 X10^3/uL (150-400); Red Blood Cell Count 5.28 X10^6/uL (4.5-5.9); Red Cell Distribution Width 13.6 % (11.6-14.8); White Blood Cell Count 7.7 X10^3/uL (4.5-11.0)
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
[2019-08-04 15:45] LABS: Acetaminophen < 10 ug/mL (10-30); Alanine Aminotransferase 51 IU/L (<50); Albumin 5.4 g/dL (3.5-5.0); Albumin Globulin Ratio 1.5 (1.0-2.8); Alkaline Phosphatase 68 U/L (38-126); Aspartate Aminotransferase 41 IU/L (17-59); BUN Creatinine Ratio 10.8 (6-22); Bilirubin Total 0.7 mg/dL (0.2-1.3); Blood Urea Nitrogen 11 mg/dL (9-20); Calcium 10.3 mg/dL (8.4-10.2); Carbon Dioxide 25 mmol/L (22-32); Chloride 104 mmol/L (98-107); Estimated Glomerular Filt Rate > 60.0 mL/min (>60); Ethanol (ETOH) < 10 mg/dL; Globulin 3.7 g/dL (1.7-4.1); Glucose 121 mg/dL (70-100); HEMOLYSIS < 15 (0-50); Potassium 4.3 mmol/L (3.4-5.1); Salicylate < 1.0 mg/dL (<20); Sodium 142 mmol/L (137-145); Total Protein 9.1 g/dL (6.3-8.2)
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
[2019-08-04] MEDS: LORazepam 0.5 MG TABLET 1 MG PO (16:18)
[2019-08-04 16:19] LABS: Appearance Urine UA CLEAR; Bilirubin Urine UA NEGATIVE (NEGATIVE); Color Urine UA YELLOW; Glucose Urine UA NEGATIVE (Negative); Ketones Urine UA NEGATIVE (NEGATIVE); Leukocyte Esterase Urine UA NEGATIVE (NEGATIVE); Nitrite Urine UA NEGATIVE (Negative); Occult Blood Urine UA TRACE-LYSED (Negative); Protein Urine UA 1+ (Negative); Urobilinogen Urine UA 0.2 E.U./dL (0.2); pH Urine UA 6.5 (4.5-8.0)
[2019-08-04 16:21] LABS: Thyroid Stimulating Hormone 1.19 uIU/mL (0.47-4.68)
[2019-08-04 16:22] LABS: UR Morphine/Opiate cutoff 300 Positive (Negative); Ur Creatinine Normal (Normal); Ur Specific Gravity Normal (Normal); Urine Amphetamines Negative (Negative); Urine Barbiturates Negative (Negative); Urine Benzodiazepines Negative (Negative); Urine Cocaine Negative (Negative); Urine MDMA Negative (Negative); Urine Methadone Negative (Negative); Urine Methamphetamines Negative (Negative); Urine Oxycodone Negative (Negative); Urine Phencyclidine Negative (Negative); Urine Tetrahydrocannabinol Positive (Negative); Urine Tricyclic Antidepressant Negative (Negative); Urine pH Normal (Normal)
[2019-08-04 16:34] LABS: Bacteria Urine Occasional (0-1); Culture Indicated Urine Cult Not Indicated; RBC Urine 0-1/HPF (0-5/HPF); WBC Urine 0-1/HPF (0-5/HPF)
--- NOTE | 2019-08-04 16:46 | PC.NURSE ---
Patient remains calm lying on bed with blanket. Door is ajar.
--- NOTE | 2019-08-04 17:05 | PC.NURSE ---
Call placed to [facility]. Advised pt with grandiose ideas and delusion. Agreeable to be assessed by [facility]. [facility] advised if patient wants to be voluntarily hospitalized they will be unable to be dispatched. Call to be placed to voluntary psych facilities.
--- NOTE | 2019-08-04 17:25 | PC.NURSE ---
call placed to [facility]--facility does not accept voluntary admissions. unable to get a hold of [employer] at this time.
--- NOTE | 2019-08-04 20:32 | PC.NURSE ---
Patient is sleeping with door ajana.
[2019-08-04 21:57] VITALS: BP 120/80; PULSE 86; RESP 16; O2SAT 98
--- NOTE | 2019-08-04 21:58 | PC.NURSE ---
VS taken. Given water and food. Had restroom break. Lying in bed NAD.
--- NOTE | 2019-08-04 22:06 | PC.NURSE ---
Patient woke up, used the bathroom and ate a bit of food. Resumed lying down.
--- NOTE | 2019-08-04 23:01 | PC.NURSE ---
Pt used bathroom in room
--- NOTE | 2019-08-04 23:15 | PC.NURSE ---
Lights out, Pt. sleeping
[2019-08-05] VITALS (7 sets, daily range): BP systolic 113–143; BP diastolic 73–83; PULSE 76–83; RESP 16–18; TEMP 37–37.2; O2SAT 97–99
--- NOTE | 2019-08-05 00:31 | PC.NURSE ---
Extra blanket provided
--- NOTE | 2019-08-05 02:06 | PC.NURSE ---
Pt. using the restroom
--- NOTE | 2019-08-05 07:12 | PC.NURSE ---
Addendum entered by Perla Lagunas R.N. 08/05/19 09:41: Patient asked if there was someone he trusted to give his car keys to as the car is at risk of being towed. Patient thought about it momentarily then said, have it towed, I have their brain. Original Note: This RN sitting 1:1 with patient. Patient is resting with eyes closed, door ajar.
--- NOTE | 2019-08-05 10:50 | PC.NURSE ---
spoke with Ashly, social service appently paperwork faxed to [facility] for review this morning, social service to see , has been sleeping this morning and still is. has had breakfast. has 1:1 RN to monitor pt
--- NOTE | 2019-08-05 11:08 | PC.NURSE ---
APOLONIA Quiñonez and MECHANICAL STRIPER Anh at bedside
--- NOTE | 2019-08-05 11:13 | PC.NURSE ---
IT SUPPORT CONSULTANT Marcial, KRIS Kamara, and RN Beverly at bedside. Pt is getting increasingly agitated as staff talks to him Pt claiming that MANAGER ENTERPRISE CONTENT MANAGEMENT is not qualified to be in the room. Pt yelling at staff saying Get the fuck out of here, get the fuck out
--- NOTE | 2019-08-05 11:15 | PC.NURSE ---
pt in room #13, secured room, social service to see will do invol. to smokey pt, practioner in room
--- NOTE | 2019-08-05 11:20 | ED.PSYCH ---
HPI - Psych General Chief Complaint: Psychiatric Symptoms Stated Complaint: ANAHI Time Seen by Provider: 08/04/19 15:06 Source: patient and police Mode of arrival: Ambulatory Related Data Home Medications Medication Instructions Recorded Confirmed aspirin 1 tab PO DAILY 03/19/18 08/05/19 Previous Rx's Medication Instructions Recorded nitroglycerin 0.3 mg sublingual 0.3 mg SL Q5M PRN #30 tab MDD 3 08/18/17 tablet tabs atorvastatin 40 mg tablet 40 mg PO HS #90 tab 10/31/18 clopidogrel 75 mg tablet 75 mg PO QDAY #90 tab 10/31/18 lisinopril 5 mg tablet 2.5 mg PO QDAY #45 tab 10/31/18 metoprolol succinate 100 mg 100 mg PO QDAY #90 tab 10/31/18 tablet,extended release 24 hr Allergies Allergy/AdvReac Type Severity Reaction Status Date / Time No Known Drug Allergies Allergy Verified 06/16/19 13:47 Patient History Medical History Cardiac arrest (Resolved 04/2017) Cardiomyopathy (Acute Unknown) Coronary artery disease (Acute Unknown) H/O ventricular tachycardia (Resolved 04/2017) Pneumonia (Resolved 04/2017) Surgical History S/P coronary artery stent placement (Resolved 04/2017) Status post knee surgery Family History Grandfather Heart disease Social History household members: none Smoking Status: Former smoker Tobacco: How many years used: 20 alcohol intake: current substance use type: marijuana (Every now and then a marijuana edible) Smoking Status: Former smoker alcohol intake frequency: 0-2 drinks per day Alcohol type: beer Substance Use Type: marijuana Exam Initial Vital Signs Initial Vital Signs: Vital Signs Temperature 98.9 F 08/04/19 15:03 Pulse Rate 85 08/04/19 15:03 Respiratory Rate 16 08/04/19 15:03 Blood Pressure 130/92 H 08/04/19 15:03 Pulse Oximetry 97 08/04/19 15:03 Course Orders Ordered: ED Orders 08/05/19 20:43 EKG-12 Lead Stat Discontinued Medications Aspirin (Aspirin Ec) 81 mg PO NOW ONE Stop: 08/05/19 11:34 Last Admin: 08/05/19 12:15 Dose: 81 mg Documented by: SHAUNNA Atorvastatin Calcium (Lipitor) 40 mg PO NOW ONE Stop: 08/05/19 11:31 Last Admin: 08/05/19 12:14 Dose: 40 mg Documented by: SHAUNNA Clopidogrel Bisulfate (Plavix) 75 mg PO NOW ONE Stop: 08/05/19 11:31 Last Admin: 08/05/19 12:14 Dose: 75 mg Documented by: SHAUNNA Lisinopril (Zestril) 2.5 mg PO NOW ONE Stop: 08/05/19 11:31 Last Admin: 08/05/19 12:13 Dose: 2.5 mg Documented by: SHAUNNA Lorazepam (Ativan) 1 mg PO NOW ONE Stop: 08/04/19 15:46 Last Admin: 08/04/19 16:18 Dose: 1 mg Documented by: AD Lorazepam (Ativan) 1 mg PO NOW ONE Stop: 08/05/19 11:18 Last Admin: 08/05/19 11:25 Dose: 1 mg Documented by: RUIZ Metoprolol Succinate (Toprol Xl) 100 mg PO NOW ONE Stop: 08/05/19 11:31 Last Admin: 08/05/19 12:14 Dose: 100 mg Documented by: SHAUNNA Vital Signs Vital signs: Vital Signs - 8 hr 08/05/19 15:51 08/05/19 15:55 08/05/19 19:30 Temperature 98.8 F Pulse Rate 81 81 83 Respiratory Rate 16 17 Blood Pressure 113/73 Blood Pressure [Left Arm] 113/73 116/79 Pulse Oximetry 98 98 MDM - Psych Differential Diagnosis Differential diagnosis: Likely acute psychosis and other (Delusional ideation, paranoia,) Medical Records Attestation: I reviewed the patient's medical records. Lab Data Attestation: I reviewed the patient's lab results. Result diagrams: 08/04/19 15:26 08/04/19 15:26 Labs: Lab Results 08/04/19 08/04/19 08/04/19 Range/Units 15:26 15:26 15: WBC 7.7 (4.5-11.0) X10^3/uL RBC 5.28 (4.5-5.9) X10^6/uL Hgb 16.0 (13.5-17.5) g/dL Hct 47.7 (41-53) % MCV 90.3 (80-100) fL MCH 30.4 (26-34) PG MCHC 33.6 (30-36) % RDW 13.6 (11.6-14.8) % Plt Count 270 (150-400) X10^3/uL Neut % (Auto) 66.0 (50-75) % Lymph % (Auto) 20.7 L (25-40) % [place] % (Auto) 11.4 (3-14) % Eos % (Auto) 1.1 L (2-4) % Baso % (Auto) 0.8 (0-2) % Neut # (Auto) 5100 (6862-5821) /uL Lymph # (Auto) 1600 (9937-3901) /uL [place] # (Auto) 900 (0-900) /uL Eos # (Auto) 100 (0-450) /uL Baso # (Auto) 100 (0-100) /uL Sodium 142 (137-145) mmol/L Potassium 4.3 (3.4-5.1) mmol/L Chloride 104 (98-107) mmol/L Carbon Dioxide 25 (22-32) mmol/L BUN 11 (9-20) mg/dL Creatinine 1.02 (0.66-1.25) mg/dL Estimated GFR > 60.0 (>60) mL/min BUN/Creatinine Ratio 10.8 (6-22) Glucose 121 H (70-100) mg/dL Calcium 10.3 H (8.4-10.2) mg/dL Total Bilirubin 0.7 (0.2-1.3) mg/dL AST 41 (17-59) IU/L ALT 51 H (<50) IU/L Alkaline Phosphatase 68 (38-126) U/L Total Protein 9.1 H (6.3-8.2) g/dL Albumin 5.4 H (3.5-5.0) g/dL Globulin 3.7 (1.7-4.1) g/dL Albumin/Globulin Ratio 1.5 (1.0-2.8) TSH 1.19 (0.47-4.68) uIU/mL Urine Color Urine Appearance Urine pH (4.5-8.0) Ur Specific [place] (1.000-1.035) Urine Protein (Negative) Urine Glucose (UA) (Negative) g/dL Urine Ketones (NEGATIVE) Urine Occult Blood (Negative) Urine Nitrate (Negative) Urine Bilirubin (NEGATIVE) Urine Urobilinogen (0.2) E.U./dL Ur Leukocyte Esterase (NEGATIVE) Urine RBC (0-5/HPF) Urine WBC (0-5/HPF) Urine Bacteria (None) Ur Culture Indicated? Salicylates < 1.0 (<20) mg/dL U Opiates 300ng/mL cut (Negative) Ur Oxycodone Screen (Negative) Urine Methadone Screen (Negative) Acetaminophen < 10 L (10-30) ug/mL Ur Barbiturates Screen (Negative) U Tricyclic Antidepress (Negative) Ur Phencyclidine Scrn (Negative) Ur Amphetamines Screen (Negative) U Methamphetamines Scrn (Negative) Ur MDMA Scrn (Ecstasy) (Negative) U Benzodiazepines Scrn (Negative) Urine Cocaine Screen (Negative) U Marijuana (THC) Screen (Negative) Ethyl Alcohol < 10 ( - 10) mg/dL COVID-19 PCR (Negative) 08/04/19 08/04/19 08/05/19 Range/Units 15:47 15:47 12:05 WBC (4.5-11.0) X10^3/uL RBC (4.5-5.9) X10^6/uL Hgb (13.5-17.5) g/dL Hct (41-53) % MCV (80-100) fL MCH (26-34) PG MCHC (30-36) % RDW (11.6-14.8) % Plt Count (150-400) X10^3/uL Neut % (Auto) (50-75) % Lymph % (Auto) (25-40) % [place] % (Auto) (3-14) % Eos % (Auto) (2-4) % Baso % (Auto) (0-2) % Neut # (Auto) (6848-5027) /uL Lymph # (Auto) (3030-5642) /uL [place] # (Auto) (0-900) /uL Eos # (Auto) (0-450) /uL Baso # (Auto) (0-100) /uL Sodium (137-145) mmol/L Potassium (3.4-5.1) mmol/L Chloride (98-107) mmol/L Carbon Dioxide (22-32) mmol/L BUN (9-20) mg/dL Creatinine (0.66-1.25) mg/dL Estimated GFR (>60) mL/min BUN/Creatinine Ratio (6-22) Glucose (70-100) mg/dL Calcium (8.4-10.2) mg/dL Total Bilirubin (0.2-1.3) mg/dL AST (17-59) IU/L ALT (<50) IU/L Alkaline Phosphatase (38-126) U/L Total Protein (6.3-8.2) g/dL Albumin (3.5-5.0) g/dL Globulin (1.7-4.1) g/dL Albumin/Globulin Ratio (1.0-2.8) TSH (0.47-4.68) uIU/mL Urine Color Yellow Urine Appearance Clear Urine pH 6.5 (4.5-8.0) Ur Specific [place] 1.020 (1.000-1.035) Urine Protein 1+ H (Negative) Urine Glucose (UA) Negative (Negative) g/dL Urine Ketones Negative (NEGATIVE) Urine Occult Blood Trace-lysed (Negative) Urine Nitrate Negative (Negative) Urine Bilirubin Negative (NEGATIVE) Urine Urobilinogen 0.2 (0.2) E.U./dL Ur Leukocyte Esterase Negative (NEGATIVE) Urine RBC 0-1/hpf (0-5/HPF) Urine WBC 0-1/hpf (0-5/HPF) Urine Bacteria Occasional (0-1) (None) Ur Culture Indicated? Cult not indicated Salicylates (<20) mg/dL U Opiates 300ng/mL cut Positive H (Negative) Ur Oxycodone Screen Negative (Negative) Urine Methadone Screen Negative (Negative) Acetaminophen (10-30) ug/mL Ur Barbiturates Screen Negative (Negative) U Tricyclic Antidepress Negative (Negative) Ur Phencyclidine Scrn Negative (Negative) Ur Amphetamines Screen Negative (Negative) U Methamphetamines Scrn Negative (Negative) Ur MDMA Scrn (Ecstasy) Negative (Negative) U Benzodiazepines Scrn Negative (Negative) Urine Cocaine Screen Negative (Negative) U Marijuana (THC) Screen Positive H (Negative) Ethyl Alcohol ( - 10) mg/dL COVID-19 PCR Negative (Negative) Urine Dip Bedside Urine Glucose Negative Bedside Urine Bilirubin - Negative Bedside Urine Ketone - Negative Urine Specific [place] 1.020 Bedside Urine Occult Blood - Negative Bedside Urine pH 6.0 Bedside Urine Protein +/- 15 Bedside Urine Urobilinogen - Negative Bedside Urine Nitrite - Negative Bedside Urine Leukocytes - Negative Esterase ECG Data Attestation: I personally reviewed and interpreted this ECG as follows: Prior ECG tracings: available for review Discharge Plan Departure Prescriptions: No Action nitroglycerin 0.3 mg tablet, sublingual 0.3 mg SL Q5M MDD 3 tabs PRN (Reason: chest pain) Qty: 30 RF: 0 atorvastatin 40 mg tablet 40 mg PO HS Qty: 90 RF: 1 clopidogrel [Plavix] 75 mg tablet 75 mg PO QDAY Qty: 90 RF: 1 lisinopril 5 mg tablet 2.5 mg PO QDAY Qty: 45 RF: 1 metoprolol succinate 100 mg tablet extended release 24 hr 100 mg PO QDAY Qty: 90 RF: 1 aspirin 81 mg tablet,chewable 1 tab PO DAILY RF: 0
[2019-08-05] MEDS: LORazepam 0.5 MG TABLET 1 MG PO (11:25)
[2019-08-05] MEDS: lisinopriL 5 MG TABLET 2.5 MG PO (12:13)
[2019-08-05] MEDS: METOPROLOL ER 50 MG TABLET 100 MG PO (12:14)
[2019-08-05] MEDS: CLOPIDOGREL 75 MG TABLET PO (12:14)
[2019-08-05] MEDS: ATORVASTATIN 20 MG TABLET 40 MG PO (12:14)
[2019-08-05] MEDS: ASPIRIN EC 81 MG TABLET PO (12:15)
[2019-08-05 13:26] LABS: COVID19 -Nasal RAPID Negative (Negative)
--- NOTE | 2019-08-05 14:38 | PC.NURSE ---
PLASTIC JOINT MAKER/SECTIONAL BELT MOLD ASSEMBLER Note: KRIS-Chato and Marcial-JUVENTINO in the room at bedside talking w/patient.
--- NOTE | 2019-08-05 15:38 | PC.NURSE ---
1500 social service/ chris here to see
--- NOTE | 2019-08-05 17:10 | CM.SWNOTE ---
Addendum entered by Chato Joseph 08/05/19 20:16: AVIONICS TEST TECHNICIAN note AVIONICS TEST TECHNICIAN calls Elyse at [facility] from outside of patient room and hands phone to patient. Patient completes interview. AVIONICS TEST TECHNICIAN calls [facility] to follow up, and Elyse at [facility] states that the interview went well. Elyse states that [facility] will require an EKG to be completed and faxed to hospital prior to acceptance due to patient's history of cardiac concerns. AVIONICS TEST TECHNICIAN spoke with provider ANIVAL Hinojosa, who states she will order an EKG. AVIONICS TEST TECHNICIAN informs patient. Patient agreeable to EKG and plan to transfer to [facility]. KRIS Dawkins Addendum entered by Chato Joseph 08/05/19 19:09: AVIONICS TEST TECHNICIAN receives return call from [facility]. Staff at [facility] inform AVIONICS TEST TECHNICIAN that there are no open beds for patient currently. AVIONICS TEST TECHNICIAN called [facility] and left Voicemail AVIONICS TEST TECHNICIAN receives call from [facility]. [facility] staff informs AVIONICS TEST TECHNICIAN that they are unable to take patient as voluntary at this time, but state that they would be able to place him if DCR consult deemed patient appropriate for ANAHI. AVIONICS TEST TECHNICIAN received call from Elyse Michael [facility] stating that they would need to complete an interview with patient in order to complete referral process. Elyse requested that patient call Elyse at 1930 at [phone]. AVIONICS TEST TECHNICIAN will meet with patient and coordinate call to [facility]. KRIS Dawkins Original Note: AVIONICS TEST TECHNICIAN note After assessment AVIONICS TEST TECHNICIAN begins search for voluntary inpatient bed for patient. AVIONICS TEST TECHNICIAN calls the following places who report no open beds: [facility], [facility], [facility], and [facility]. A referral for patient had been faxed to [facility] earlier in day. AVIONICS TEST TECHNICIAN called [facility] to follow up. [facility] staff reports denial due to patient being on blood thinners. AVIONICS TEST TECHNICIAN calls [facility] in [place] and left a voicemail requesting a call back. AVIONICS TEST TECHNICIAN called [facility], who informed AVIONICS TEST TECHNICIAN that there might be a discharge later in the evening and requested clinicals. AVIONICS TEST TECHNICIAN faxed clinicals to [facility]. AVIONICS TEST TECHNICIAN called [facility] in [place] and completed phone screening. [facility] requested clinicals. AVIONICS TEST TECHNICIAN faxed clinicals for patient to [facility]. AVIONICS TEST TECHNICIAN will follow up with [facility] and [facility] if no response. AVIONICS TEST TECHNICIAN will continue to seek inpatient hospitalization for patient. KRIS Dawkins
--- NOTE | 2019-08-05 19:36 | PC.NURSE ---
Searchlight Operator continues working for placement.
--- NOTE | 2019-08-05 19:52 | PC.NURSE ---
BHAVANI/AMBER Note: Pt. is on a phone interview with [employer]Nano Robbins with pt.
--- NOTE | 2019-08-05 21:33 | CM.SWNOTE ---
OPERATIONS OFFICER TRUST DEPARTMENT Note OPERATIONS OFFICER TRUST DEPARTMENT faxed EKG to [facility] and called to follow up. Elyse at [facility] informs OPERATIONS OFFICER TRUST DEPARTMENT that patient has been accepted for care at [facility], and provides details for transfer. Accpeting provider: Dr. Pink. [id number] . Intake Contact: Elyse Rodriguez. Check-in time 0230 08/05. Requesting report before 1am. Address [address] [place] [address], [id number]- come through ambulance bay doors. OPERATIONS OFFICER TRUST DEPARTMENT updated patient, patient's provider, RIGGER SUPERVISOR/CYLINDER BATCHER, and RN working with patient on plans for transfer overnight. Patient will transfer to [facility] overnight. Chato Joseph MSW
--- NOTE | 2019-08-05 23:02 | PC.NURSE ---
Jbroyles on watch, Pt. using the restroom
--- NOTE | 2019-08-05 23:45 | PC.NURSE ---
ambulance is here to transport Pt. to [place]. Pt is eager to go and is in a pleasant mood.
--- NOTE | 2019-08-05 23:55 | PC.NURSE ---
Pt has left the ED with Ambulance
== END 2019-08-06 00:07 ==
PROVIDERS: Emergency Provider Nurse Practitioner Family; PCP Family Medicine
DX: F22 Delusional disorders (principal); F29 Unspecified psychosis not due to a substance or known physiological condition; R45.1 Restlessness and agitation; Z11.59 Encounter for screening for other viral diseases; R00.1 Bradycardia, unspecified; F11.10 Opioid abuse, uncomplicated; F12.90 Cannabis use, unspecified, uncomplicated
CPT/HCPCS: 36415; 80053; 80305; 80320; 80329; 81001; 81003; 84443; 85025; 87635; 93005; 99284; 99285; G0480

== ENCOUNTER → 2019-08-22 11:08 | Outpatient (CLI) | payer OTHER, MEDICAID, SELFPAY ==
[2018-03-18 15:03] VITALS: BMI 25.0
[2019-08-22 13:09] LABS: Cholesterol 164 mg/dL (140-199); HDL Cholesterol 61 mg/dL (40-60); LDL Cholesterol Calculated 76 mg/dL (<100); Triglycerides 137 mg/dL (35-150)
[2019-08-22 13:18] LABS: Vitamin D 25 Hydroxy (D3) 25.4 ng/mL (30.0-100.0)
== END ==
PROVIDERS: PCP Family Medicine; Referring Provider Family Medicine; Visit Provider Family Medicine
DX: E55.9 Vitamin D deficiency, unspecified (principal); F20.9 Schizophrenia, unspecified; I25.10 Atherosclerotic heart disease of native coronary artery without angina pectoris
CPT/HCPCS: 36415; 80061; 82306

== ENCOUNTER → 2019-09-17 14:09 | Outpatient (CLI) | payer OTHER, MEDICAID, SELFPAY ==
[2018-03-18 15:03] VITALS: BMI 25.0
[2019-09-17 15:51] LABS: BUN Creatinine Ratio 14.1 (6-22); Blood Urea Nitrogen 14 mg/dL (9-20); Calcium 9.4 mg/dL (8.4-10.2); Carbon Dioxide 25 mmol/L (22-32); Chloride 102 mmol/L (98-107); Estimated Glomerular Filt Rate > 60.0 mL/min (>60); Glucose 84 mg/dL (70-100); HEMOLYSIS 15 (0-50); Potassium 4.2 mmol/L (3.4-5.1); Sodium 137 mmol/L (137-145)
--- NOTE | 2019-10-17 14:35 | DI.ECHO.S_ITS ---
Echocardiogram Report + + :Name: NAVID DANGELO Study Date: 09/17/2019 Height: 64 in : :[facility] Location: [facility] Weight: 146 lb : : Gender: Male BSA: 1.7 m2 : :: 1970 Age: 48 yrs BP: 113/83 mmHg: :Reason For Study: SOB : :Ordering Physician: Evelyn : :Sha Lawson Performed By: Rosa Page : + + Interpretation Summary The left ventricle is normal in size and wall thickness. The ejection fraction is estimated to be 50-55%. No significant change in LV ejection fraction. The right ventricle is normal size. Right ventricular systolic function is at the lower limits of normal. The aortic valve is bicuspid. It is more obvious on today's examination than in the past. The aortic valve is mildly calcified. There is mild aortic regurgitation. Compared to the prior echo study, there has been no change in the severity of aortic regurgitation. The aortic root is mildly dilated. Procedure: A two-dimensional transthoracic echocardiogram with color flow and Doppler was performed. The study quality was technically adequate. Comparison is made with the echocardiogram of 04/29/2017. The patient was in sinus bradycardia with heart rates between 52-58 bpm during the exam. Left Ventricle: The left ventricle is normal in size and wall thickness. There is no thrombus. The ejection fraction is estimated to be 50-55%. There is mid anterolateral wall hypokinesis. Diastolic parameters suggest a relaxation abnormality of the left ventricle, consistent with probable normal filling pressures. Right Ventricle: The right ventricle is normal size. Right ventricular systolic function is at the lower limits of normal. Atria: The left atrium is mildly dilated. Right atrial size is normal. There is no Doppler evidence for an interatrial shunt. Mitral Valve: There is mild mitral annular calcification. The mitral valve leaflets are slightly calcified. There is trace mitral regurgitation. Aortic Valve: The aortic valve is bicuspid. The aortic valve opens well. The aortic valve is mildly calcified. There is no aortic valve stenosis. There is mild aortic regurgitation. Compared to the prior echo study, there has been no change in the severity of aortic regurgitation. Tricuspid Valve: The tricuspid valve is normal in structure and function. There is a trace or physiologic amount of tricuspid regurgitation. Pulmonary artery pressures cannot be estimated because of the lack of a measurable TR jet velocity. Pulmonic Valve: The pulmonic valve is not well seen, but is grossly normal. There is a trace or physiologic amount of pulmonic regurgitation. Great Vessels: The aortic root is mildly dilated. The ascending aorta is normal in size. The aortic arch is normal in size. The pulmonary artery is normal size. The IVC is of normal diameter and collapses greater than 50% with a sniff. This suggests a low right atrial pressure of 3 mm Hg. Pericardium/ Pleura There is no pericardial effusion. There is no pleural effusion. MMode/2D Measurements & Calculations LVIDd: 5.0 cm LVOT diam: 2.3 cm LVIDs: 4.1 cm Ao root diam: 3.9 cm FS: 18.4 % asc Aorta Diam: 3.1 cm EPSS: 0.29 cm Ao Arch Diam (Prox Trans): 2.4 cm IVSd: 0.87 cm LVPWd: 0.87 cm LV baldwin. diameter/BSA (cm/m^2): 2.9 LV sys. diameter/BSA (cm/m^2): 2.4 LA A2 area: 22.4 cm2 RA long axis: 3.8 cm LA A4 area: 17.6 cm2 RA area: 14.5 cm2 LA length (vol): 5.2 cm RA vol: 47.2 ml LA vol: 63.9 ml RA : 27.6 ml/m2 LA vol index: 37.3 ml/m2 IVC diam: 1.9 cm RVD1 (basal): 3.8 cm TAPSE: 1.8 cm Doppler Measurements & Calculations Ao V2 max: 156.1 cm/sec LVOT Max Hank: 83.9 cm/sec Ao V2 mean: 113.1 cm/sec LV V1 max P.8 mmHg Ao max P.7 mmHg LV V1 VTI: 17.0 cm Ao mean P.7 mmHg KJ(I,D): 2.4 cm2 Ao V2 VTI: 29.0 cm KJ(V,D): 2.2 cm2 sev ratio: 0.59 KJ indexed to BSA (cm^2/m^2): 1.4 MV E max hank: 46.6 cm/sec TR max hank: 218.2 cm/sec MV A max hank: 48.5 cm/sec TR max P.0 mmHg MV E/A: 0.96 PA V2 max: 63.7 cm/sec Med Peak E' Hank: 7.2 cm/sec PA V2 mean: 47.3 cm/sec E/E' med: 6.5 PA mean P.95 mmHg Lat Peak E' Hank: 9.3 cm/sec PA Accel Time: 0.16 sec E/E' lat: 5.0 E/e' average: 5.7 MV dec time: 0.30 sec SV(LVOT): 69.9 ml Reading Physician:04:45 PM
== END ==
PROVIDERS: PCP Family Medicine; Referring Provider Internal Medicine Cardiovascular Disease; Visit Provider Internal Medicine Cardiovascular Disease
DX: R06.02 Shortness of breath (principal); Q23.1 Congenital insufficiency of aortic valve
CPT/HCPCS: 36415; 80048; 93306

== ENCOUNTER → 2021-02-17 13:39 | Outpatient (CLI) | payer OTHER, MEDICAID, SELFPAY ==
[2018-03-18 15:03] VITALS: BMI 25.0
[2021-02-17 16:11] LABS: Alanine Aminotransferase 23 IU/L (<50); Albumin 4.4 g/dL (3.5-5.0); Albumin Globulin Ratio 1.5 (1.0-2.8); Alkaline Phosphatase 52 U/L (38-126); Aspartate Aminotransferase 20 IU/L (17-59); BUN Creatinine Ratio 8.1 (6-22); Bilirubin Total 0.3 mg/dL (0.2-1.3); Blood Urea Nitrogen 8 mg/dL (9-20); Calcium 9.9 mg/dL (8.4-10.2); Carbon Dioxide 28 mmol/L (22-32); Chloride 103 mmol/L (98-107); Estimated Glomerular Filt Rate > 60.0 mL/min (>60); Globulin 2.9 g/dL (1.7-4.1); Glucose 96 mg/dL (70-100); HEMOLYSIS < 15 (0-50); Potassium 4.6 mmol/L (3.4-5.1); Sodium 141 mmol/L (137-145); Total Protein 7.3 g/dL (6.3-8.2)
== END ==
PROVIDERS: PCP Family Medicine; Referring Provider Family Medicine; Visit Provider Family Medicine
DX: B35.1 Tinea unguium (principal); B35.4 Tinea corporis
CPT/HCPCS: 36415; 80053

== ENCOUNTER → 2021-11-26 10:01 | Outpatient (CLI) | payer MEDICARE, MEDICAID, SELFPAY ==
[2018-03-18 15:03] VITALS: BMI 25.0
[2021-11-26 11:40] LABS: Add Manual Diff / Slide Review NO; Basophils Absolute Auto 100 /uL (0-100); Eosinophils Absolute Auto 200 /uL (0-450); Eosinophils Percent Auto 2.6 % (2-4); Hematocrit 39.1 % (41-53); Hemoglobin 13.4 g/dL (13.5-17.5); Lymphocytes Absolute Auto 1100 /uL (1100-4500); Mean Corpuscular HGB Conc 34.2 % (30-36); Mean Corpuscular Volume 87.6 fL (80-100); Monocytes Absolute Auto 800 /uL (0-900); Monocytes Percent Auto 13.1 % (3-14); Neutrophils Absolute Auto 4100 /uL (1500-7000); Neutrophils Percent Auto 65.3 % (50-75); Platelet Count 292 X10^3/uL (150-400); Red Blood Cell Count 4.46 X10^6/uL (4.5-5.9); Red Cell Distribution Width 14.7 % (11.6-14.8); White Blood Cell Count 6.4 X10^3/uL (4.5-11.0)
[2021-11-26 11:50] LABS: Hemoglobin A1C% w Est Avg Glu 5.4 % (4.0-6.0)
[2021-11-26 12:10] LABS: Alanine Aminotransferase 27 IU/L (<50); Albumin 4.1 g/dL (3.5-5.0); Albumin Globulin Ratio 1.3 (1.0-2.8); Alkaline Phosphatase 60 U/L (38-126); Aspartate Aminotransferase 24 IU/L (17-59); BUN Creatinine Ratio 11.2 (6-22); Bilirubin Total 0.3 mg/dL (0.2-1.3); Blood Urea Nitrogen 12 mg/dL (9-20); Calcium 9.3 mg/dL (8.4-10.2); Carbon Dioxide 24 mmol/L (22-32); Chloride 105 mmol/L (98-107); Cholesterol 112 mg/dL (140-199); Estimated Glomerular Filt Rate > 60 mL/min (>60); Globulin 3.1 g/dL (1.7-4.1); Glucose 106 mg/dL (70-100); HDL Cholesterol 36 mg/dL (40-60); HEMOLYSIS < 15 (0-50); LDL Cholesterol Calculated 61 mg/dL (<100); Potassium 4.3 mmol/L (3.4-5.1); Sodium 139 mmol/L (137-145); Total Protein 7.2 g/dL (6.3-8.2); Triglycerides 74 mg/dL (35-150)
== END ==
PROVIDERS: PCP Family Medicine; Referring Provider Family Medicine; Visit Provider Family Medicine
DX: R63.5 Abnormal weight gain (principal)
CPT/HCPCS: 36415; 80053; 80061; 83036; 85025

== ENCOUNTER → 2023-12-28 12:36 | Outpatient (CLI) | payer OTHER, SELFPAY ==
[2018-03-18 15:03] VITALS: BMI 25.0
[2023-12-28 14:46] LABS: Hemoglobin A1C% w Est Avg Glu 5.2 % (4.0-6.0)
[2023-12-28 15:03] LABS: Cholesterol 142 mg/dL (140-199); HDL Cholesterol 60 mg/dL (40-60); LDL Cholesterol Calculated 28 mg/dL (<100); Triglycerides 271 mg/dL (35-150)
[2023-12-28 15:50] LABS: Vitamin B12 280 pg/mL (239-931)
== END ==
PROVIDERS: PCP Family Medicine; Referring Provider Student in an Organized Health Care Education/Training Program; Visit Provider Student in an Organized Health Care Education/Training Program
DX: R73.9 Hyperglycemia, unspecified (principal); E78.5 Hyperlipidemia, unspecified; Z51.81 Encounter for therapeutic drug level monitoring
CPT/HCPCS: 80061; 82607; 83036

== ENCOUNTER → 2024-07-23 13:24 | Outpatient (CLI) | payer OTHER, SELFPAY ==
[2018-03-18 15:03] VITALS: BMI 25.0
[2024-07-23 13:45] LABS: Add Manual Diff / Slide Review NO; Basophils Absolute Auto 100 /uL (0-100); Basophils Percent Auto 0.8 % (0-2); Eosinophils Absolute Auto 100 /uL (0-450); Eosinophils Percent Auto 1.2 % (2-4); Hematocrit 40.8 % (41-53); Hemoglobin 13.9 g/dL (13.5-17.5); Lymphocytes Absolute Auto 1800 /uL (1100-4500); Lymphocytes Percent Auto 21.3 % (25-40); Mean Corpuscular HGB Conc 34.1 % (30-36); Mean Corpuscular Hemoglobin 31.9 PG (26-34); Mean Corpuscular Volume 93.5 fL (80-100); Monocytes Absolute Auto 800 /uL (0-900); Monocytes Percent Auto 9.7 % (3-14); Neutrophils Absolute Auto 5600 /uL (1500-7000); Platelet Count 216 X10^3/uL (150-400); Red Blood Cell Count 4.36 X10^6/uL (4.5-5.9); Red Cell Distribution Width 14.7 % (11.6-14.8); White Blood Cell Count 8.4 X10^3/uL (4.5-11.0)
[2024-07-23 14:27] LABS: Alanine Aminotransferase 28 IU/L (<50); Albumin Globulin Ratio 1.7 (1.0-2.8); Alkaline Phosphatase 43 U/L (38-126); Aspartate Aminotransferase 38 IU/L (17-59); BUN Creatinine Ratio 5.5 (6-22); Bilirubin Total 0.4 mg/dL (0.2-1.3); Blood Urea Nitrogen 5 mg/dL (9-20); Calcium 8.4 mg/dL (8.4-10.2); Carbon Dioxide 22 mmol/L (22-32); Chloride 107 mmol/L (98-107); Cholesterol 109 mg/dL (140-199); Estimated Glomerular Filt Rate > 60 mL/min (>60); Globulin 2.4 g/dL (1.7-4.1); Glucose 123 mg/dL (70-99); HDL Cholesterol 59 mg/dL (40-60); HEMOLYSIS 33 (0-50); LDL Cholesterol Calculated 32 mg/dL (<100); Potassium 3.6 mmol/L (3.4-5.1); Sodium 137 mmol/L (137-145); Total Protein 6.4 g/dL (6.3-8.2); Triglycerides 92 mg/dL (35-150)
[2024-07-23 14:58] LABS: TSH w/ Reflex to FT4 1.25 uIU/mL (0.47-4.68)
== END ==
PROVIDERS: PCP Family Medicine; Referring Provider Family Medicine; Visit Provider Family Medicine
DX: F20.9 Schizophrenia, unspecified (principal); I10 Essential (primary) hypertension; E78.5 Hyperlipidemia, unspecified; Z71.6 Tobacco abuse counseling
CPT/HCPCS: 36415; 80053; 80061; 84443; 85025